=== PATIENT | male | born 1960 | race Hispanic/Latino ===

== ENCOUNTER 2018-10-14 11:50 | Emergency (ER) | payer MEDICAID ==
[~2018-10-14] VITALS: Ht 165.1 cm; Wt 70.3 kg
[~2018-10-14 11:50] MED LIST: GLIPIZIDE5 G1 MC; IBUPROFEN600 MG ORAL; METFORMIN HCL500 M1 ORAL; NORCO 5-325 TA1 EACH ORAL; PERMETHRIN60 GM TOPIC; PROTONIX40 MG ORAL; UNOBMED; ZOFRAN4 M1 ORAL
[2018-10-14 11:55] VITALS: BP 160/98
[2018-10-14] MEDS ORDERED: UNOBMED (11:55)
--- NOTE | 2018-10-14 11:55 | NUR ---
ED Nurse Note: BIB by ambulance, picked up from the street d/t ETOH. Patient awake, verbal, [place]ian speaking.
--- NOTE | 2018-10-14 12:02 | NUR ---
ED Nurse Note: Pt being seen by PA at bedside.
[2018-10-14 12:43] LABS: EOSINOPHILS % (AUTO) 3.3 % (0.0-3.0); HEMOGLOBIN 15.8 G/DL (14.2-18.0); LYMPHOCYTES % (AUTO) 29.9 % (20.0-45.0); MEAN CORPUSCULAR VOLUME 92 FL (80-99); MONOCYTES % (AUTO) 5.2 % (1.0-10.0); NEUTROPHILS % (AUTO) 60.7 % (45.0-75.0); PLATELET COUNT 202 K/UL (150-450); RED BLOOD COUNT 5.12 M/UL (4.70-6.10); RED CELL DISTRIBUTION WIDTH 11.6 % (11.6-14.8); WHITE BLOOD COUNT 6.7 K/UL (4.8-10.8)
[2018-10-14 12:44] LABS: ANION GAP 12 mmol/L (5-15); BLOOD UREA NITROGEN 6 mg/dL (7-18); CALCIUM 8.8 MG/DL (8.5-10.1); CARBON DIOXIDE 26 MMOL/L (21-32); CHLORIDE 101 MMOL/L (98-107); POTASSIUM 3.7 MMOL/L (3.5-5.1); SODIUM 139 MMOL/L (136-145)
--- NOTE | 2018-10-14 12:50 | NUR ---
ED Nurse Note: Pt picked up for CT in stable condition
[2018-10-14 13:01] LABS: ALANINE AMINOTRANSFERASE 31 U/L (12-78); ALBUMIN 3.9 G/DL (3.4-5.0); ALBUMIN/GLOBULIN RATIO 0.9 (1.0-2.7); ALKALINE PHOSPHATASE 55 U/L (46-116); ASPARTATE AMINO TRANSFERASE 37 U/L (15-37); BILIRUBIN,TOTAL 0.6 MG/DL (0.2-1.0); CREATINE KINASE 172 U/L (26-308)
[2018-10-14 13:13] LABS: APPEARANCE,URINE CLEAR; BILIRUBIN, URINE NEGATIVE (NEGATIVE); COLOR,URINE PALE YELLOW; GLUCOSE, URINE (UA) 2+ (NEGATIVE); KETONES,URINE NEGATIVE (NEGATIVE); LEUKOCYTE ESTERASE ,URINE NEGATIVE (NEGATIVE); NITRITE,URINE NEGATIVE (NEGATIVE); PH,URINE 6 (4.5-8.0); PROTEIN,URINE NEGATIVE (NEGATIVE); UROBILINOGEN,URINE NORMAL MG/DL (0.0-1.0)
--- NOTE | 2018-10-14 13:35 | Diagnostic Imaging Report ---
Indication: Headache. Head trauma Technique: Contiguous 5 mm thick transaxial imaging of the head obtained in a Siemens Sensation [address] scanner. Soft tissue and bone windows generated. Automatic Exposure Control was utilized. Total Dose length Product (DLP): 1389.[address] Dose Index Volume (CTDIvol): 70.38,70.38 mGy Comparison: none Findings: The size and configuration of the cortical sulci, basal cisterns, and ventricles are within normal limits for age. There is no mass effect, midline shift, or edema identified. There is no evidence of acute hemorrhage or abnormal intra-axial or extra-axial fluid collections. The bones and soft tissues are unremarkable. Impression: No mass effect, edema or acute bleed. The CT scanner at [facility] is accredited by the [employer] and the scans are performed using dose optimization techniques as appropriate to a performed exam including Automatic Exposure control.
--- NOTE | 2018-10-14 13:44 | Emergency Room Report ---
History of Present Illness General Chief Complaint: Alcohol Intoxication Source: Medical Record Present Illness HPI 57-year-old male with no symptom past medical history brought in by the paramedics after wandering the street due to alcohol intoxication. Patient reports that he had a lot to try and is disheveled and complains of headache after falling his head and hitting his head to the ground losing consciousness. Patient is not a good historian patient denies any past medical history symptoms denies any drug use. Patient appears obese disheveled and urinating in his bed. Allergies: Coded Allergies: No Known Allergies (Unverified , 02/22/14) Patient History Past Medical History: see triage record Past Surgical History: unable to obtain Pertinent Family History: none Social History: Reports: alcohol use Immunizations: UTD Reviewed Nursing Documentation: PMH: Agreed; PSxH: Agreed Nursing Documentation-PMH Hx Hypertension: Yes Hx Diabetes: Yes Hx Gastrointestinal Problems: Yes - GI BLEED Review of Systems All Other Systems: negative except mentioned in HPI Physical Exam Vital Signs Date Time Temp Pulse Resp B/P (MAP) Pulse Ox O2 Delivery O2 Flow Rate FiO2 10/14/18 11:46 98.1 100 20 160/98 (118) 96 Room Air Sp02 EP Interpretation: abnormal General Appearance: mild distress, other - Disheveled Head: normocephalic, atraumatic Eyes: bilateral eye normal inspection, bilateral eye PERRL ENT: normal ENT inspection, hearing grossly normal Neck: normal inspection, full range of motion, supple, thyroid normal Respiratory: normal inspection, chest non-tender, lungs clear, no wheezing Cardiovascular #1: normal inspection, regular rate, rhythm, no murmur Gastrointestinal: normal inspection, non tender, soft Rectal: deferred Genitourinary: no CVA tenderness Musculoskeletal: normal inspection, back normal Neurologic: oriented x3, responsive, iap displays analyst III-XII nml as tested Skin: no rash Lymphatic: normal inspection, no adenopathy Medical Decision Making PA Attestation All my diagnosis and treatment plans were reviewed ad discussed with my supervising physician Dr. Joseph Diagnostic Impression: Primary Impression: Acute alcoholic intoxication ER Course 57-year-old male with no symptom past medical history brought in by the paramedics after wandering the street due to alcohol intoxication. Patient reports that he had a lot to try and is disheveled and complains of headache after falling his head and hitting his head to the ground losing consciousness. Patient is not a good historian patient denies any past medical history symptoms denies any drug use. Patient appears obese disheveled and urinating in his bed. Ddx considered but are not limited to: generalized anxiety disorder, panic attack, depression with psycotic featurs, bipolar disorder, drug overdose Vital signs: are WNL, pt. is afebrile H&PE are most consistent with: Ddx considered but are not limited to: Alcohol intoxication with altered level of consciousness, alcohol intoxication causing pancreatitis, alcohol abuse, multi drug use and alcohol intoxication Vital signs: are WNL, pt. is afebrile H&PE are most consistent with: ORDERS: Blood work and head CT no contrast ER intervention: IV fluids and Zofran as well as Pepcid DISCHARGE: At this time pt. is stable for d/c to home. Will provide printed patient care instructions, and any necessary prescriptions. Care plan and follow up instructions have been discussed with the patient prior to discharge. At this time patient was sober and to be discharged with normal vital signs and normal labs. CT/MRI/US Diagnostic Results CT/MRI/US Diagnostic Results : Imaging Test Ordered: Head CT no contrast Impression No sign of hematoma Last Vital Signs Date Time Temp Pulse Resp B/P (MAP) Pulse Ox O2 Delivery O2 Flow Rate FiO2 10/14/18 11:55 98.1 100 20 160/98 96 Room Air Disposition: HOME, SELF-CARE Condition: Stable Referrals: NOT CHOSEN IPA/MD,REFERRING (PCP) Patient Instructions: Alcohol Use Disorder, Alcohol Intoxication, Alcohol Intoxication, [id number] Yovani Roberson Oct 14, 2018 13:44
[2018-10-14 16:17] VITALS: BP 142/72
== END 2018-10-14 16:10 | disposition home or self-care (01) ==
LOC: EDBD 11:50 → EMR 12:22
DX: F10.129 Alcohol abuse with intoxication, unspecified (principal); R51 Headache; I10 Essential (primary) hypertension; E11.9 Type 2 diabetes mellitus without complications
CPT/HCPCS: 36415; 70450; 80053; 80307; 81001; 82550; 85025; 96361; 96374; 96375; 99284; J2405; S0028

== ENCOUNTER 2018-10-28 10:23 | Inpatient (IN) | payer MEDICAID ==
[~2018-10-28] VITALS: Ht 157.5 cm; Wt 95.3 kg
[2018-10-28 10:23] VITALS: BP 136/82
--- NOTE | 2018-10-28 10:27 | Emergency Room Report ---
History of Present Illness General Chief Complaint: Lower Extremity Injury Source: Patient Present Illness HPI Patient presents with weakness and pain in his feet. The patient is a diabetic and has ulcers that are worsening with redness spreading up towards his body. He claims that he does not take medication for his diabetes. He does drink alcohol. He is has swelling in his feet. Is worse on the right side. Pain is rated 10/10, burning and aching. Occasionally vomiting. No blood. He occasionally has diarrhea but denies melena or hematochezia. Never seizures. Denies DTs. Has been admitted here for hyperosmolar coma. No sore throat, chest pain, palpitations, dysuria, abdominal pain, shortness of breath, joint pain, rashes, depression, anxiety, visual changes, headache. Patient was last admitted in 2014 with these discharge diagnoses: 1. Hyperosmolar coma, resolved. 2. Noncompliance. 3. History of diabetes, poorly controlled. 4. Dehydration, resolved. 5. Upper gastrointestinal bleeding. 6. History of alcohol abuse. 7. Anemia, status post four units PRBC. 8. Coagulopathy, status post two units of fresh frozen plasma. 9. Thrombocytopenia. 10. 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 11. Newly diagnosed pneumonia. 12. Gastritis, status post EGD. 13. Elevated transaminase. 14. Hypokalemia, resolved. Allergies: Coded Allergies: No Known Allergies (Unverified , 02/22/14) Patient History Past Medical History: see triage record Social History: Reports: alcohol use; Denies: drug use Social History Narrative Homeless - born in [facility] Reviewed Nursing Documentation: PMH: Agreed; PSxH: Agreed Nursing Documentation-PMH Hx Hypertension: Yes Hx Diabetes: Yes Hx Gastrointestinal Problems: Yes - GI BLEED Review of Systems All Other Systems: negative except mentioned in HPI Physical Exam Vital Signs Date Time Temp Pulse Resp B/P (MAP) Pulse Ox O2 Delivery O2 Flow Rate FiO2 10/28/18 10:15 99.1 80 16 136/82 (100) 96 Room Air General Appearance: GCS 15, non-toxic, mild distress, other - Disheveled Head: normocephalic, atraumatic Eyes: bilateral eye PERRL, bilateral eye EOMI, bilateral eye Scleral Injection ENT: moist mucus membranes - No lingual trauma Neck: full range of motion, supple Respiratory: chest non-tender, lungs clear, normal breath sounds Cardiovascular #1: regular rate, rhythm Cardiovascular #2: 2+ radial (L), 2+ dorsalis pedis (R), 2+ dorsalis pedis (L) Gastrointestinal: normal inspection, non tender, soft, no mass, non-distended Genitourinary: no CVA tenderness Musculoskeletal: back normal, no calf tenderness - left, calf tenderness - R no cords, swelling - Right foot Neurologic: alert, motor strength/tone normal, DTRs symmetric, sensory intact, other - Slight ataxia and slow to respond, oriented - X2 Psychiatric: depressed affect Skin: other - deep erythematous and necrotic ulcer R heel with foot swelling and erythema extending up calf Medical Decision Making Diagnostic Impression: Primary Impression: Diabetic foot ulcer Qualified Codes: E11.621 - Type 2 diabetes mellitus with foot ulcer; L97.402 - Non-pressure chronic ulcer of unspecified heel and midfoot with fat layer exposed Additional Impressions: Cellulitis Qualified Codes: L03.115 - Cellulitis of right lower limb Alcohol intoxication Qualified Codes: F10.929 - Alcohol use, unspecified with intoxication, unspecified Hyperglycemia Noncompliance with medication regimen ER Course Patient presents with bilateral heel lesions with history of diabetes and noncompliance and alcohol abuse. Differential includes diabetic foot ulcers, osteomyelitis, cellulitis, diabetic ketoacidosis, necrotizing fasciitis, risk of alcohol withdrawal or DTs amongst others. Although there is calf tenderness exam is against DVT. Evaluation with EKG, chest x-ray, foot x-rays and labs. Patient will be treated with IV hydration, analgesia, tetanus and based on findings possibly antibiotics. EKG no injury, chest x-ray no infiltrates, foot x-rays with vascular calcifications no gas or osteomyelitis. Labs with normal white count however elevated sed rate and C-reactive protein. CMP with elevated blood glucose without evidence of acidosis. But alcohol is elevated. Zosyn and vancomycin started. Bacitracin applied to lesions. Due to extensive lesion on the right heel with foot swelling and erythema the patient needs IV antibiotics. The patient is admitted to the hospital. Social service consult will be obtained. Laboratory Tests Test 10/28/18 11:05 White Blood Count 6.8 K/UL (4.8-10.8) Red Blood Count 4.56 M/UL (4.70-6.10) L Hemoglobin 14.3 G/DL (14.2-18.0) Hematocrit 42.6 % (42.0-52.0) Mean Corpuscular Volume 93 FL (80-99) Mean Corpuscular Hemoglobin 31.4 PG (27.0-31.0) H Mean Corpuscular Hemoglobin Concent 33.6 G/DL (32.0-36.0) Red Cell Distribution Width 12.1 % (11.6-14.8) Platelet Count 180 K/UL (150-450) Mean Platelet Volume 8.1 FL (6.5-10.1) Neutrophils (%) (Auto) 56.7 % (45.0-75.0) Lymphocytes (%) (Auto) 26.8 % (20.0-45.0) Monocytes (%) (Auto) 12.9 % (1.0-10.0) H Eosinophils (%) (Auto) 2.4 % (0.0-3.0) Basophils (%) (Auto) 1.2 % (0.0-2.0) Erythrocyte Sedimentation Rate 77 MM/HR (0-20) H Prothrombin Time 10.7 SEC (9.30-11.50) Prothrombin Time INR 1.0 (0.9-1.1) PTT 28 SEC (23-33) Urine Color Pale yellow Urine Appearance Clear Urine pH 6.5 (4.5-8.0) Urine Specific [place] 1.005 (1.005-1.035) Urine Protein Negative (NEGATIVE) Urine Glucose (UA) 2+ (NEGATIVE) H Urine Ketones Negative (NEGATIVE) Urine Blood Negative (NEGATIVE) Urine Nitrite Negative (NEGATIVE) Urine Bilirubin Negative (NEGATIVE) Urine Urobilinogen Normal MG/DL (0.0-1.0) Urine Leukocyte Esterase Negative (NEGATIVE) Sodium Level 135 MMOL/L (136-145) L Potassium Level 3.9 MMOL/L (3.5-5.1) Chloride Level 100 MMOL/L (98-107) Carbon Dioxide Level 25 MMOL/L (21-32) Anion Gap 10 mmol/L (5-15) Blood Urea Nitrogen 5 mg/dL (7-18) L Creatinine 0.8 MG/DL (0.55-1.30) Estimate Glomerular Filtration Rate > 60 mL/min (>60) Glucose Level 246 MG/DL (74-106) H Lactic Acid Level 1.90 mmol/L (0.4-2.0) Calcium Level 8.5 MG/DL (8.5-10.1) Magnesium Level 2.3 MG/DL (1.8-2.4) Total Bilirubin 0.5 MG/DL (0.2-1.0) Aspartate Amino Transferase (AST) 94 U/L (15-37) H Alanine Aminotransferase (ALT) 73 U/L (12-78) Alkaline Phosphatase 55 U/L (46-116) Total Creatine Kinase 189 U/L (26-308) Troponin I 0.000 ng/mL (0.000-0.056) C-Reactive Protein, Quantitative 4.1 mg/dL (0.00-0.90) H Pro-B-Type Natriuretic Peptide 35 pg/mL (0-125) Total Protein 8.7 G/DL (6.4-8.2) H Albumin 3.6 G/DL (3.4-5.0) Globulin 5.1 g/dL Albumin/Globulin Ratio 0.7 (1.0-2.7) L Lipase 219 U/L (73-393) Salicylates Level 1.2 ug/mL (2.8-20) L Urine Opiates Screen Negative (NEGATIVE) Acetaminophen Level < 2 MCG/ML (10-30) L Urine Barbiturates Screen Negative (NEGATIVE) Phencyclidine (PCP) Screen Negative (NEGATIVE) Urine Amphetamines Screen Negative (NEGATIVE) Urine Benzodiazepines Screen Negative (NEGATIVE) Urine Cocaine Screen Negative (NEGATIVE) Urine Marijuana (THC) Screen Negative (NEGATIVE) Serum Alcohol 332 mg/dL EKG Diagnostic Results Rate: normal Rhythm: NSR ST Segments: no acute changes Rhythm Strip Diag. Results EP Interpretation: yes Rhythm: NSR, no PVC's, no ectopy Chest X-Ray Diagnostic Results Chest X-Ray Diagnostic Results : Chest X-Ray Ordered: Yes # of Views/Limited/Complete: 1 View Indication: Other EP Interpretation: Yes Interpretation: no consolidation, no effusion, no pneumothorax Impression: No acute disease Electronically Signed by: Electronically signed by Vega Lr MD Other X-Ray Diagnostic Results Other X-Ray Diagnostic Results #1: X-Ray ordered: Left foot # of Views/Limited Vs Complete: 3 View Indication: Other EP Interpretation: Yes Interpretation: no dislocation, no fractures, other - Ocular calcification Electronically Signed by: Electronically signed by Vega Lr MD Other X-Ray Diagnostic Results #2: X-Ray ordered: Right foot # of Views/Limited Vs Complete: 3 View Indication: Other EP Interpretation: Yes Interpretation: no dislocation, no fractures, other - Vascular calcification Impression: Other Electronically Signed by: Electronically signed by Vega Lr MD Last Vital Signs Date Time Temp Pulse Resp B/P (MAP) Pulse Ox O2 Delivery O2 Flow Rate FiO2 10/28/18 21:00 Room Air 10/28/18 20:00 99.3 90 16 144/82 (102) 93 Status: improved Disposition: ADMITTED INPATIENT Condition: Serious Vega Lr MD Oct 28, 2018 10:27
[2018-10-28] MEDS ORDERED: Tetanus/Diptheria/Pertussis IM ONE (10:30)
[2018-10-28] MEDS ORDERED: Morphine Sulfate 2mg/ml Inj(IV/IM USE ONLY) IVP ONE (10:30)
[2018-10-28 11:24] LABS: BASOPHILS % (AUTO) 1.2 % (0.0-2.0); EOSINOPHILS % (AUTO) 2.4 % (0.0-3.0); HEMATOCRIT 42.6 % (42.0-52.0); HEMOGLOBIN 14.3 G/DL (14.2-18.0); LYMPHOCYTES % (AUTO) 26.8 % (20.0-45.0); MEAN CORPUSCULAR VOLUME 93 FL (80-99); MONOCYTES % (AUTO) 12.9 % (1.0-10.0); NEUTROPHILS % (AUTO) 56.7 % (45.0-75.0); PLATELET COUNT 180 K/UL (150-450); RED BLOOD COUNT 4.56 M/UL (4.70-6.10); RED CELL DISTRIBUTION WIDTH 12.1 % (11.6-14.8); WHITE BLOOD COUNT 6.8 K/UL (4.8-10.8)
[2018-10-28 11:25] LABS: APPEARANCE,URINE CLEAR; BILIRUBIN, URINE NEGATIVE (NEGATIVE); COLOR,URINE PALE YELLOW; GLUCOSE, URINE (UA) 2+ (NEGATIVE); KETONES,URINE NEGATIVE (NEGATIVE); LEUKOCYTE ESTERASE ,URINE NEGATIVE (NEGATIVE); NITRITE,URINE NEGATIVE (NEGATIVE); PH,URINE 6.5 (4.5-8.0); PROTEIN,URINE NEGATIVE (NEGATIVE); UROBILINOGEN,URINE NORMAL MG/DL (0.0-1.0)
[2018-10-28 11:33] LABS: ANION GAP 10 mmol/L (5-15); BLOOD UREA NITROGEN 5 mg/dL (7-18); CALCIUM 8.5 MG/DL (8.5-10.1); CARBON DIOXIDE 25 MMOL/L (21-32); CHLORIDE 100 MMOL/L (98-107); CREATININE 0.8 MG/DL (0.55-1.30); POTASSIUM 3.9 MMOL/L (3.5-5.1); SODIUM 135 MMOL/L (136-145)
--- NOTE | 2018-10-28 11:36 | NUR ---
ED Nurse Note: ann avelar done blood and urine sent
[2018-10-28 11:45] LABS: ALANINE AMINOTRANSFERASE 73 U/L (12-78); ALBUMIN 3.6 G/DL (3.4-5.0); ALBUMIN/GLOBULIN RATIO 0.7 (1.0-2.7); ALKALINE PHOSPHATASE 55 U/L (46-116); ASPARTATE AMINO TRANSFERASE 94 U/L (15-37); BILIRUBIN,TOTAL 0.5 MG/DL (0.2-1.0); CREATINE KINASE 189 U/L (26-308)
--- NOTE | 2018-10-28 11:59 | Diagnostic Imaging Report ---
Indication: Dyspnea Comparison: 05/28/2014 A single view chest radiograph was obtained. Findings: Cardiomediastinal appearance is within normal limits for age. The lungs are clear. Pulmonary vascularity is appropriate. The diaphragmatic contour is smooth and costophrenic angles are sharp. No pleural effusions are identified. The bones are unremarkable. Impression: No acute findings
--- NOTE | 2018-10-28 12:00 | Diagnostic Imaging Report ---
Indication: Foot pain Comparison: None Findings: 3 views of the left foot were obtained. No acute fractures, malalignment, erosions or periostitis are identified. Soft tissue swelling is present. Vascular calcifications are present.. Impression: No acute findings
--- NOTE | 2018-10-28 12:00 | Diagnostic Imaging Report ---
Indication: Foot Pain Comparison: None Findings: 3 views of the right foot were obtained. No acute fractures, malalignment, erosions or periostitis are identified. Soft tissue swelling is present. Extensive vascular calcifications are noted. Impression: No acute findings.
--- NOTE | 2018-10-28 12:00 | NUR ---
ED Nurse Note: Wound culture sent.
[2018-10-28] MEDS ORDERED: Piperacillin/Tazobactam 3.375 GM in NS 110 ML IVPB ONE (12:30)
[2018-10-28] MEDS ORDERED: Vancomycin 1.5 GM in NS 275 ML IVPB ONE (12:30)
[2018-10-28] MEDS ORDERED: Neosporin Oint Ud Pkt TOPIC ONE (12:30)
--- NOTE | 2018-10-28 14:01 | NUR ---
ED Nurse Note: pt states to ermd he only takes tylenol and no other meds . pt 's belongings list done swabs sent ifv infusing and abx well tolerated.
[2018-10-28 14:03] VITALS: BP 120/76
--- NOTE | 2018-10-28 15:20 | NUR ---
NURSE NOTES: Report received from JOHANNE Spears. Pt. sleeping comfortably. No discomfort noticed. R FA IV20g intact. flushed and SL. Multiple wounds on lower extremities cleaned with NS and covered with Optifoam. Wound care consult initiated. Pt. sleeping during assessment. Social service consult for placement. Bed on lowest position, side rails upx2, brakes engaged. Call light within easy reach.
--- NOTE | 2018-10-28 15:25 | NUR ---
NURSE NOTES: Report received from JOHANNE Spears. Patient sleeping comfortably. Easily awakened by voice however unable to stay awake. In RA. Denies any pain or SOB. AOx2 at this time. Belongings checked by CN, singed and filed. R FA20g IV patent, flushed, SL. VS stable. Multiple wounds in BLE cleaned with NS, picture taken and covered with Optifoam. Initial wound assessment done. Notified wound care nurse. Pt. to be evaluated on 10/29. patient services technician consult initiated for homelessness. Bed on lowest position, side rails upx2, brakes engaged. Call light in easy access.
[2018-10-28 16:00] VITALS: BP 105/67
[2018-10-28] MEDS ORDERED: Morphine Sulfate 2mg/ml Inj(IV/IM USE ONLY) IVP PRN (16:15)
--- NOTE | 2018-10-28 18:39 | NUR ---
CASE MANAGEMENT: REVIEW 57Y/MALE BIBA FROM STREET CC: C/O RIGHT FOOT PAIN AND SWELLING SI: OSTEOMYELITIS . DIABETIC FOOT ULCER /RIGHT HEEL . ALCOHOL INTOXICATION T 99.1 HR 80 RR 16 BP 136/82 SAT 96% ROOM AIR MONO 12.9 ESR 77 NA 135 BUN 5 GLUCOSE 245 IS: NS IVF BOLUS X1 MORPHINE IV X1 ZOFRAN IV X1 Tdap IM X1 VANCO IV X1 ZOSYN IV X1 PATIENT ADMITTED TO MED/SURG UNIT 10/28/2018 DCP: PATIENT REPORTS BEING HOMELESS
--- NOTE | 2018-10-28 19:17 | Infectious Diseases Prog Note ---
Assessment/Plan Problems: (1) Diabetic foot ulcer Assessment & Plan: with cellulitis , will order bone scan to rule out underlying osteomyelitis, continue local wound care and dressings change as per underwear finisher (2) Cellulitis Assessment & Plan: due to the above, continue antibiotics, keep legs elevated (3) Hyperglycemia Assessment & Plan: with poorly controlled DM, recommend tight glycemic control to keep blood glucose between 100-140 (4) Peripheral neuropathy Assessment & Plan: due to DM poorly controlled Subjective Allergies: Coded Allergies: No Known Allergies (Unverified , 02/22/14) Objective Vital Signs Last 24 Hour Vital Signs Date Time Temp Pulse Resp B/P (MAP) Pulse Ox O2 Delivery O2 Flow Rate FiO2 10/28/18 16:00 98.4 86 18 105/67 (80) 93 10/28/18 15:53 Room Air 10/28/18 14:56 Room Air 10/28/18 14:27 99.1 99 16 120/76 95 Room Air 10/28/18 14:03 99 16 120/76 95 Room Air 10/28/18 13:26 99.1 10/28/18 10:23 99.1 16 136/82 96 Room Air 10/28/18 10:15 99.1 80 16 136/82 (100) 96 Room Air Height (Feet): 5 Height (Inches): 2.00 Weight (Pounds): 210 Laboratory Tests Test 10/28/18 11:05 White Blood Count 6.8 K/UL (4.8-10.8) Red Blood Count 4.56 M/UL (4.70-6.10) L Hemoglobin 14.3 G/DL (14.2-18.0) Hematocrit 42.6 % (42.0-52.0) Mean Corpuscular Volume 93 FL (80-99) Mean Corpuscular Hemoglobin 31.4 PG (27.0-31.0) H Mean Corpuscular Hemoglobin Concent 33.6 G/DL (32.0-36.0) Red Cell Distribution Width 12.1 % (11.6-14.8) Platelet Count 180 K/UL (150-450) Mean Platelet Volume 8.1 FL (6.5-10.1) Neutrophils (%) (Auto) 56.7 % (45.0-75.0) Lymphocytes (%) (Auto) 26.8 % (20.0-45.0) Monocytes (%) (Auto) 12.9 % (1.0-10.0) H Eosinophils (%) (Auto) 2.4 % (0.0-3.0) Basophils (%) (Auto) 1.2 % (0.0-2.0) Erythrocyte Sedimentation Rate 77 MM/HR (0-20) H Prothrombin Time 10.7 SEC (9.30-11.50) Prothromb Time International Ratio 1.0 (0.9-1.1) Activated Partial Thromboplast Time 28 SEC (23-33) Urine Color Pale yellow Urine Appearance Clear Urine pH 6.5 (4.5-8.0) Urine Specific [place] 1.005 (1.005-1.035) Urine Protein Negative (NEGATIVE) Urine Glucose (UA) 2+ (NEGATIVE) H Urine Ketones Negative (NEGATIVE) Urine Blood Negative (NEGATIVE) Urine Nitrite Negative (NEGATIVE) Urine Bilirubin Negative (NEGATIVE) Urine Urobilinogen Normal MG/DL (0.0-1.0) Urine Leukocyte Esterase Negative (NEGATIVE) Sodium Level 135 MMOL/L (136-145) L Potassium Level 3.9 MMOL/L (3.5-5.1) Chloride Level 100 MMOL/L (98-107) Carbon Dioxide Level 25 MMOL/L (21-32) Anion Gap 10 mmol/L (5-15) Blood Urea Nitrogen 5 mg/dL (7-18) L Creatinine 0.8 MG/DL (0.55-1.30) Estimat Glomerular Filtration Rate > 60 mL/min (>60) Glucose Level 246 MG/DL (74-106) H Lactic Acid Level 1.90 mmol/L (0.4-2.0) Calcium Level 8.5 MG/DL (8.5-10.1) Magnesium Level 2.3 MG/DL (1.8-2.4) Total Bilirubin 0.5 MG/DL (0.2-1.0) Aspartate Amino Transf (AST/SGOT) 94 U/L (15-37) H Alanine Aminotransferase (ALT/SGPT) 73 U/L (12-78) Alkaline Phosphatase 55 U/L (46-116) Total Creatine Kinase 189 U/L (26-308) Troponin I 0.000 ng/mL (0.000-0.056) C-Reactive Protein, Quantitative 4.1 mg/dL (0.00-0.90) H Pro-B-Type Natriuretic Peptide 35 pg/mL (0-125) Total Protein 8.7 G/DL (6.4-8.2) H Albumin 3.6 G/DL (3.4-5.0) Globulin 5.1 g/dL Albumin/Globulin Ratio 0.7 (1.0-2.7) L Lipase 219 U/L (73-393) Salicylates Level 1.2 ug/mL (2.8-20) L Urine Opiates Screen Negative (NEGATIVE) Acetaminophen Level < 2 MCG/ML (10-30) L Urine Barbiturates Screen Negative (NEGATIVE) Phencyclidine (PCP) Screen Negative (NEGATIVE) Urine Amphetamines Screen Negative (NEGATIVE) Urine Benzodiazepines Screen Negative (NEGATIVE) Urine Cocaine Screen Negative (NEGATIVE) Urine Marijuana (THC) Screen Negative (NEGATIVE) Serum Alcohol 332 mg/dL Current Medications Medications (Trade) Dose Ordered Sig/[place] Route PRN Reason Start Time Stop Time Status Last Admin Dose Admin Acetaminophen/ Hydrocodone Bitart ([place]amel 5/325) 1 tab Q4H PRN ORAL Moderate Pain (Pain Scale 4-6) 10/28/18 16:15 11/04/18 16:14 Heparin Sodium (Porcine) (Heparin 5000 units/ml) 5,000 units EVERY 12 HOURS SUBQ 10/28/18 21:00 11/27/18 20:59 Morphine Sulfate (Morphine Sulfate) 2 mg Q4H PRN IVP Severe Pain (Pain Scale 7-10) 10/28/18 16:15 11/04/18 16:14 Pantoprazole (Protonix) 40 mg DAILY IVP 10/29/18 09:00 11/28/18 08:59 Piperacillin Sod/ Tazobactam Sod 3.375 gm/Sodium Chloride 110 ml @ 27.5 mls/hr EVERY 8 HOURS IVPB 10/28/18 22:00 11/02/18 21:59 Sodium Chloride 1,000 ml @ 300 mls/hr Q3H20M IV 10/28/18 10:30 11/27/18 10:29 10/28/18 18:09 Vancomycin HCl (Vanco rx to dose) 1 ea DAILY PRN MISC Per rx protocol 10/28/18 16:15 11/27/18 16:14 Vancomycin HCl 1 gm/Dextrose 275 ml @ 183.708 mls/hr Q12HR@1100,2300 IVPB 10/28/18 23:00 11/02/18 22:59 Jakob Odell M.D. Oct 28, 2018 19:17
--- NOTE | 2018-10-28 19:30 | NUR ---
NURSE NOTES: Patient asleep in bed, no complaint of pain, not in acute respiratory distress. Instructed the use of call light. Bed in lowest position, lock engaged and alarm on. Will continue to monitor.
--- NOTE | 2018-10-28 19:55 | NUR ---
HAND-OFF: Report given to JACOB Loja. Pt in stable condition.
[2018-10-28 20:00] VITALS: BP 144/82
[2018-10-28] MEDS: Piperacillin/Tazobactam 3.375 GM in NS 110 ML IVPB SCH (21:37)
[2018-10-28] MEDS: Heparin 5000 units/ml inj SUBQ SCH (21:40)
--- NOTE | 2018-10-28 23:02 | NUR ---
NURSE NOTES: Clarified to Dr. Solorzano about pt's IVF of 300ml/hr. Obtained new order and carried out.
[2018-10-28] MEDS: Vancomycin 1gm/D5W 275ml IVPB SCH ×2 (23:43)
[2018-10-29] VITALS: BP 165/63
--- NOTE | 2018-10-29 01:59 | NUR ---
NURSE NOTES: Dr. Solorzano was notified for increased BP. Obtained order for Lasix.
[2018-10-29 04:00] VITALS: BP 179/106
[2018-10-29] MEDS: HYDROcodone/Acetamin 5/325 tab ORAL PRN ×2 (04:47→21:32)
[2018-10-29] MEDS: Piperacillin/Tazobactam 3.375 GM in NS 110 ML IVPB SCH ×3 (04:53→21:33)
[2018-10-29 07:14] LABS: ALANINE AMINOTRANSFERASE 61 U/L (12-78); ALBUMIN 3.4 G/DL (3.4-5.0); ALBUMIN/GLOBULIN RATIO 0.7 (1.0-2.7); ALKALINE PHOSPHATASE 57 U/L (46-116); ANION GAP 11 mmol/L (5-15); ASPARTATE AMINO TRANSFERASE 66 U/L (15-37); BILIRUBIN,TOTAL 0.8 MG/DL (0.2-1.0); BLOOD UREA NITROGEN 6 mg/dL (7-18); CALCIUM 8.6 MG/DL (8.5-10.1); CARBON DIOXIDE 27 MMOL/L (21-32); CHLORIDE 99 MMOL/L (98-107); CHOLESTEROL 167 MG/DL (< 200); HDL CHOLESTEROL 76 MG/DL (40-60); POTASSIUM 3.6 MMOL/L (3.5-5.1); SODIUM 136 MMOL/L (136-145); TRIGLYCERIDES 100 MG/DL (30-150)
--- NOTE | 2018-10-29 07:15 | NUR ---
NURSE NOTES: Patient received in stable condition, observed ambulating from the bathroom with assistance of EXPORT ADMINISTRATOR. Reports mild pain on right foot only. Denies SOB. Breathing unlabored on room air. Dressings intact. IV sites on left wrist patent and intact. Bed locked in lowest position. Urinal by the bedside. Call light placed within reach. Will continue to monitor.
[2018-10-29 07:16] LABS: BASOPHILS % (AUTO) 1.9 % (0.0-2.0); EOSINOPHILS % (AUTO) 1.2 % (0.0-3.0); HEMATOCRIT 40.8 % (42.0-52.0); HEMOGLOBIN 13.8 G/DL (14.2-18.0); LYMPHOCYTES % (AUTO) 16.4 % (20.0-45.0); MEAN CORPUSCULAR VOLUME 93 FL (80-99); MONOCYTES % (AUTO) 14.5 % (1.0-10.0); PLATELET COUNT 188 K/UL (150-450); RED BLOOD COUNT 4.37 M/UL (4.70-6.10); RED CELL DISTRIBUTION WIDTH 12.3 % (11.6-14.8); WHITE BLOOD COUNT 6.9 K/UL (4.8-10.8)
--- NOTE | 2018-10-29 07:21 | NUR ---
HAND-OFF: Report given to JACOB Aguilera.
[2018-10-29 08:00] VITALS: BP 163/102
[2018-10-29] MEDS: Pantoprazole Inj IVP SCH (08:14)
[2018-10-29] MEDS: Metoprolol 25mg tab ORAL SCH ×2 (08:15→21:33)
[2018-10-29] MEDS: Heparin 5000 units/ml inj SUBQ SCH ×2 (08:29→21:41)
--- NOTE | 2018-10-29 09:30 | NUR ---
NURSE NOTES:WOUND CARE NOTES:Pt presented on admission with multiple ulcerations both lower extremities and feet. Full thickness ulcer with 90% biofilm,erythematous borders noted to posterior R tibia (L)1.5cm x (W)0.8cm.No odor or exudate noted. No elevation in skin temp or induration noted periwound. Dry eschar plantar R foot (L)1.5cm x (W)1cm.Periwound without erythema or fluctuance. Full thickness ulcer R heel. Base of wound has 90% mixed slough necrosis ,10% maría elena. Wound is fluctuant along borders. (L)5.5cm x (W)7cm.Small amt of brown exudate with mild odor noted. Two full thickness ulcer noted to L tibia that are in close proximity. Full thickness ulcer lateral L tibia. Base of wound with 100% slough with erythematous borders. (L)1.6cm x (W) 1.2cm. No odor or exudate noted. Full thickness ulcer lateral/posterior L tibia .Base of wound has 100% slough with erythematous borders. No odor or exudate noted.(L)1.4cm x (W)1.5cm. Dry eschar L achilles without erythema or fluctuance periwound.(L)3cm x (W)0.5cm..Blood filled blister note to L heel (L)3.8cm x (W)4.5cm. Periwound fluctuant but blanchable.. Necrotic areas noted to plantar L 1st, and 2nd metatarsals. Web space and plantar aspect of 3rd metatarsal is also necrotic. Pt stated he developed ulcers about 6 months ago but denied being seen by physician. 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 Education provided to pt on diabetic foot care and of risks vs benefits to wearing proper fitting foot wear . Instructed to wear shoes with wider width and good support . Pt also instructed to check feet daily and to maintain proper foot hygiene. Tx.Plan: Cleanse wounds R and L tibia with Saline. Apply Therahoney. Apply Cavilon Skin Barrier periwound. Cover wounds with Optifoam drsg. Change Daily and prn. Cleanse wound R heel with Saline. Apply Therahoney. Apply Cavilon Skin BArrier periwound.Cover with ABD pad. Wrap with Kerlix Daily and prn. Apply Betadine to necrotic areas R achilles,Necrotic toes and R heel . Cover with ABD pad. Change Daily and prn. Elevate legs with pillow.
--- NOTE | 2018-10-29 10:15 | NUR ---
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 SI: Osteomylitis VS: BP: 136/82 HR: 80 RR 16 02 Sat 96% (RA) T: 99.2 NT: RBC 4.56 Erythrocyte SED 77 UR Glucose 2+ BUN 5 Glucose Random 246 AST/SGOT 94 Total Protein 8.7 CRP Quantitative 4.1 Salicylate 1.2 Acetaminophen <2 Alcohol Serum 332mg/ml Xray Foot Complete R: Soft tissue swelling is present. Extensive vascular calcifications are noted. Xray Foot Complete L: Soft tissue swelling is present. Extensive vascular calcifications are noted. CXR: negative IS: Reglan 10mg IVP NS 1000ml IV Fentanyl 50mcg IV Zosyn 3.375GM IVPB Admitted to MedSurg MedSurg status DCP: Pending Hospital Stay
[2018-10-29] MEDS: Vancomycin 1gm/D5W 275ml IVPB SCH ×2 (10:19)
--- NOTE | 2018-10-29 10:34 | History & Physical ---
History and Physical History & Physicial seen and examined. Full Dictation completed on 1031 hours Kylie Solorzano MD Oct 29, 2018 10:34
--- NOTE | 2018-10-29 10:38 | NUR ---
Social Work This Sw received a consult due to homelessness. This SW met with patient who appears more alert/oriented x3. Patient explains he has been homeless (no longer has been staying with his friend, Shirley; noted last admission from [facility]). Patient explains he stays on [address] and [address] and continues to show substance abuse (alcohol) daily. Patient is an undocumented resident (for the past twenty years) and does not have any income. Patient denied that his friends are available to assist anymore financially. Pending progress; this Sw discussed with patient regarding abstaining from substance abuse (and risks involved). Patient does not have income or insurance for treatment, while AA meetings are recommended. Homeless shelters also recommended upon discharge, due to no income for placement elsewhere at this time. Pending progress and wound care needed at this time. Homeless coordinator here will also follow.
--- NOTE | 2018-10-29 10:45 | Consultation ---
DATE OF CONSULTATION: 10/28/2018 INFECTIOUS DISEASE CONSULTATION CONSULTING PHYSICIAN: Jakob Odell M.D. REFERRING PHYSICIAN: Kylie Solorzano M.D. REASON FOR CONSULTATION: Diabetic foot infection with ulcer and deep heel tissue injury in a poorly controlled diabetic patient. Recommendation for antibiotics treatment. HISTORY OF PRESENT ILLNESS: The patient is a 57-year-old male with poorly controlled diabetes and noncompliance with alcohol abuse history, presented to [facility] Emergency Room with weakness and pain in his feet. The patient is a known diabetic and noncompliant with his diabetic medicine. He has developed skin wounds on both heels, right worse than left over the last couple of weeks concerning for deep tissue injury and diabetic foot infection. He also had redness on both feet surrounding his deep tissue injury concerning for cellulitis. The patient has not been taking any antibiotics for it or seek any medical attention, so he was admitted through the emergency room for further evaluation and management. The patient was started on vancomycin and Zosyn empiric coverage and Infectious Disease consultation was requested for antibiotics treatment and further care. REVIEW OF SYSTEMS: A 14-point of system reviewed were all negative apart from the one I mentioned above. PAST MEDICAL HISTORY: Significant for hyperosmolar coma due to poorly controlled diabetes, dehydration, upper GI bleeding, alcohol abuse, anemia, coagulopathy, liver cirrhosis due to alcohol abuse, pneumonia, and noncompliance. PAST SURGICAL HISTORY: Not on record. SOCIAL HISTORY: Unclear whether he is homeless or not at this point. He was drinking in the past. Denied any recent alcohol activity. FAMILY HISTORY: Not contributory. ALLERGIES: No known drug allergies. MEDICATIONS: He is on vancomycin and Zosyn. For the rest of his medications, please refer to MAR. PHYSICAL EXAMINATION: VITAL SIGNS: Temperature 98.4, pulse 85, respirations 18, and blood pressure 105/67. Saturation 93% on room air. GENERAL: A middle-aged male, lying in bed, lethargic, awake, alert and responsive, not in distress. HEENT: Normocephalic and atraumatic. Pupils reactive to light. Moist oral mucosa. No exudate. NECK: Supple. No lymphadenopathy. CARDIOVASCULAR: Regular rate and rhythm. No murmur or gallop. LUNGS: Clear bilaterally. Diminished breathing sounds at the bases. No wheezing or rhonchi. ABDOMEN: Soft, nontender, and nondistended. Normal bowel sounds. No hepatosplenomegaly or ascites. EXTREMITIES: He had multiple wounds, mainly on the heels, worse on the right side than left. Left one has a hemorrhagic skin blister about to open up. Multiple wounds on his leg with redness and erythema on his feet with poor pulse in both legs. LABORATORY DATA: Showed white count of 6.8, hemoglobin 14.3, and platelet count 180,000. BUN of 5, creatinine 0.8. AST of 94, ALT 73. C-reactive protein 4.1. Urinalysis showed +3 glucose, but negative for infection. IMAGING: Right foot x-ray showed no acute findings. Left foot x-ray showed no acute findings. Chest x-ray showed no acute findings. ASSESSMENT AND RECOMMENDATION: 1. Diabetic foot ulcer. Continue current antibiotics coverage. Podiatry evaluation is pending. Recommend tight glycemic control. Local wound care as needed. We will do bone scan of both feet to rule out osteo. 2. Cellulitis of both legs. Already on wide spectrum antibiotics. Keep leg elevated all the time. Need vascular evaluation. 3. Deep tissue injury in both heels, worse on the right side, about to develop pressure wound. Keep offloading, local care, podiatry evaluation as needed and follow up. 4. Diabetes, poorly controlled. Recommend tight glycemic control to keep blood glucose between 100 to 140. Thank you for the consult. ID will continue to follow. Jakob Odell M.D. DR: EUGENIO JOB#: [id number] CC:
--- NOTE | 2018-10-29 11:24 | Infectious Diseases Prog Note ---
Assessment/Plan Problems: (1) Diabetic foot ulcer Assessment & Plan: with cellulitis , await bone scan to rule out underlying osteomyelitis, continue wide spectrum antibiotics and local wound care and dressings change as per intranet support (2) Cellulitis Assessment & Plan: due to the above, continue antibiotics, keep legs elevated (3) Hyperglycemia Assessment & Plan: with poorly controlled DM, recommend tight glycemic control to keep blood glucose between 100-140 (4) Peripheral neuropathy Assessment & Plan: due to DM poorly controlled Subjective Constitutional: Reports: no symptoms HEENT: Reports: no symptoms Respiratory: Reports: no symptoms Breasts: Reports: no symptoms Cardiovascular: Reports: no symptoms Gastrointestinal/Abdominal: Reports: no symptoms Genitourinary: Reports: no symptoms Neurologic: Reports: no symptoms Psychiatric: Reports: no symptoms Skin: Reports: ulcer Endocrine: Reports: no symptoms Hematologic: Reports: no symptoms Musculoskeletal: Reports: pain, swelling Allergies: Coded Allergies: No Known Allergies (Unverified , 02/22/14) Objective Vital Signs Last 24 Hour Vital Signs Date Time Temp Pulse Resp B/P (MAP) Pulse Ox O2 Delivery O2 Flow Rate FiO2 10/29/18 10:50 99.5 10/29/18 09:00 Room Air 10/29/18 08:15 92 179/106 10/29/18 08:00 100.5 93 20 163/102 (122) 97 10/29/18 04:00 98.9 92 16 179/106 (130) 96 10/29/18 00:00 99.4 94 16 165/63 (97) 97 10/28/18 21:00 Room Air 10/28/18 20:00 99.3 90 16 144/82 (102) 93 10/28/18 16:00 98.4 86 18 105/67 (80) 93 10/28/18 15:53 Room Air 10/28/18 14:56 Room Air 10/28/18 14:27 99.1 99 16 120/76 95 Room Air 10/28/18 14:03 99 16 120/76 95 Room Air 10/28/18 13:26 99.1 Height (Feet): 5 Height (Inches): 2.00 Weight (Pounds): 210 General Appearance: WD/WN, no acute distress HEENT: normocephalic, atraumatic, anicteric, mucous membranes moist, PERRL, EOMI, pharynx normal, supple Respiratory/Chest: chest wall non-tender, lungs clear, normal breath sounds, no respiratory distress, no accessory muscle use Cardiovascular: normal peripheral pulses, normal rate, regular rhythm, no gallop/murmur, no JVD Abdomen: normal bowel sounds, soft, non tender, no organomegaly, non distended , no mass, no scars Extremities: no cyanosis, no clubbing Skin: no rash, no lesions, no ulcers Neurologic/Psychiatric: alert, oriented x 3, responsive Lymphatic: no neck adenopathy, no groin adenopathy Musculoskeletal: normal muscle bulk, no effusion Microbiology Date/Time Source Procedure Growth Status 10/28/18 12:00 Foot Right Gram Stain - Final Resulted 10/28/18 12:00 Wound Culture - Preliminary Staphylococcus Aureus Resulted Laboratory Tests Test 10/29/18 06:18 White Blood Count 6.9 K/UL (4.8-10.8) Red Blood Count 4.37 M/UL (4.70-6.10) L Hemoglobin 13.8 G/DL (14.2-18.0) L Hematocrit 40.8 % (42.0-52.0) L Mean Corpuscular Volume 93 FL (80-99) Mean Corpuscular Hemoglobin 31.6 PG (27.0-31.0) H Mean Corpuscular Hemoglobin Concent 33.9 G/DL (32.0-36.0) Red Cell Distribution Width 12.3 % (11.6-14.8) Platelet Count 188 K/UL (150-450) Mean Platelet Volume 7.3 FL (6.5-10.1) Neutrophils (%) (Auto) 66.0 % (45.0-75.0) Lymphocytes (%) (Auto) 16.4 % (20.0-45.0) L Monocytes (%) (Auto) 14.5 % (1.0-10.0) H Eosinophils (%) (Auto) 1.2 % (0.0-3.0) Basophils (%) (Auto) 1.9 % (0.0-2.0) Sodium Level 136 MMOL/L (136-145) Potassium Level 3.6 MMOL/L (3.5-5.1) Chloride Level 99 MMOL/L (98-107) Carbon Dioxide Level 27 MMOL/L (21-32) Anion Gap 11 mmol/L (5-15) Blood Urea Nitrogen 6 mg/dL (7-18) L Creatinine 1.0 MG/DL (0.55-1.30) Estimat Glomerular Filtration Rate > 60 mL/min (>60) Glucose Level 192 MG/DL (74-106) H Hemoglobin A1c 7.0 % (4.3-6.0) H Calcium Level 8.6 MG/DL (8.5-10.1) Total Bilirubin 0.8 MG/DL (0.2-1.0) Aspartate Amino Transf (AST/SGOT) 66 U/L (15-37) H Alanine Aminotransferase (ALT/SGPT) 61 U/L (12-78) Alkaline Phosphatase 57 U/L (46-116) Total Protein 8.5 G/DL (6.4-8.2) H Albumin 3.4 G/DL (3.4-5.0) Globulin 5.1 g/dL Albumin/Globulin Ratio 0.7 (1.0-2.7) L Triglycerides Level 100 MG/DL (30-150) Cholesterol Level 167 MG/DL (< 200) LDL Cholesterol 75 mg/dL (<100) HDL Cholesterol 76 MG/DL (40-60) H Cholesterol/HDL Ratio 2.2 (3.3-4.4) L Current Medications Medications (Trade) Dose Ordered Sig/Ana Maria Route PRN Reason Start Time Stop Time Status Last Admin Dose Admin Acetaminophen (Tylenol) 650 mg Q6H PRN ORAL Mild Pain/Temp > 100.5 10/29/18 09:00 11/28/18 08:59 10/29/18 10:20 Acetaminophen/ Hydrocodone Bitart ([place] 5/325) 1 tab Q4H PRN ORAL Moderate Pain (Pain Scale 4-6) 10/28/18 16:15 11/04/18 16:14 10/29/18 04:47 Clonidine HCl (Catapres Tab) 0.1 mg Q4H PRN ORAL For High Blood Pressure 10/29/18 08:15 11/28/18 08:14 Furosemide (Lasix) 40 mg DAILY IV 10/29/18 05:00 11/28/18 04:59 10/29/18 04:41 Glimepiride (Amaryl) 2 mg ACBREAKFAST ORAL 10/30/18 06:30 9/15/19 06:29 Heparin Sodium (Porcine) (Heparin 5000 units/ml) 5,000 units EVERY 12 HOURS SUBQ 10/28/18 21:00 11/27/18 20:59 10/29/18 08:29 Metformin HCl (Glucophage) 500 mg TIAC ORAL 10/29/18 11:30 11/28/18 11:29 Metoprolol Tartrate (Lopressor) 25 mg Q12HR ORAL 10/29/18 09:00 11/28/18 08:59 10/29/18 08:15 Morphine Sulfate (Morphine Sulfate) 2 mg Q4H PRN IVP Severe Pain (Pain Scale 7-10) 10/28/18 16:15 11/04/18 16:14 Pantoprazole (Protonix) 40 mg DAILY IVP 10/29/18 09:00 11/28/18 08:59 10/29/18 08:14 Piperacillin Sod/ Tazobactam Sod 3.375 gm/Sodium Chloride 110 ml @ 27.5 mls/hr EVERY 8 HOURS IVPB 10/28/18 22:00 11/02/18 21:59 10/29/18 04:53 Vancomycin HCl (Vanco rx to dose) 1 ea DAILY PRN MISC Per rx protocol 10/28/18 16:15 11/27/18 16:14 Vancomycin HCl 1 gm/Dextrose 275 ml @ 183.708 mls/hr Q12HR@1100,2300 IVPB 10/28/18 23:00 11/02/18 22:59 10/29/18 10:19 Jakob Odell M.D. Oct 29, 2018 11:24
[2018-10-29 12:00] VITALS: BP 153/81
[2018-10-29] MEDS: metFORMIN 500mg tab ORAL SCH ×2 (12:21→16:09)
--- NOTE | 2018-10-29 14:39 | Consultation ---
Consult Note Assessment/Plan A/ 1) Wounds bilateral feet of unknown etiology - likely from being down for long period of time when intoxicated 2) Monckeberg's sclerorsis 3) DM 2 uncontrolled P/ 1) Cont wound care as ordered by wound nurse. No surgical intervention at this time. Patient requires extended wound care to resolved wounds 2) Abx per ID. Bone scan pending 3) Medical management of DM for optimal wound healing Thank you Jack Laughlin DPM Oct 29, 2018 14:39
--- NOTE | 2018-10-29 14:50 | Consultation ---
History of Present Illness General Date patient seen: Oct 29, 2018 Reason for Hospitalization: Lower Extremity Injury Present Illness HPI 57 year old male with history of DM, prior etoh, and below presented with weakness, worsening wounds of lower extremities and feeling unwell. surgery called to evaluate and assist with care. patient seen, chart reviewed, patient examined. Allergies: Coded Allergies: No Known Allergies (Unverified , 02/22/14) Medication History Scheduled PRN Ibuprofen* (Motrin*), 600 MG ORAL Q8H PRN for For Pain Miscellaneous Medications Unable to Obtain Medications (Unable To Obtain Meds), (Reported) Patient History Limited by: medical condition History Provided By: Patient, Medical Record, PMD Healthcare decision maker Resuscitation status Full Code Advanced Directive on File Past Medical/Surgical History Past Medical/Surgical History: (1) DKA, type 2 (2) DKA, type 2 (3) Hyperglycemia (4) Hemorrhagic shock (5) Hyperosmolar coma (6) Upper GI bleed (7) Hyperglycemia (8) Severe anemia (9) Thrombocytopenia (10) ETOH abuse (11) Coagulopathy (12) Hyponatremia (13) Hypokalemia (14) Tachycardia (15) Cramps of lower extremity (16) Cramps of lower extremity (17) Abdominal pain (18) Acute alcoholic intoxication (19) Peripheral neuropathy (20) Noncompliance with medication regimen (21) Alcohol intoxication (22) Hyperglycemia (23) Cellulitis (24) Diabetic foot ulcer Review of Systems Review of Symptoms General ROS: no weight loss or fever Psychological ROS: no depression or mood changes, no memory loss Ophthalmic ROS: no visual changes or eye irritation ENT ROS: no nasal congestion, hearing loss, dizziness Allergy and Immunology ROS: no allergic symptoms or urticaria Hematological and Lymphatic ROS: no swollen glands, unusual bleeding or bruising Endocrine ROS: no polyuria, polydipsia, weight changes, temperature intolerance Respiratory ROS: no cough, shortness of breath, or wheezing Cardiovascular ROS: no chest pain or dyspnea on exertion Gastrointestinal ROS: denies abdominal pain, no bright red blood in stool. Musculoskeletal ROS: no myalgias or arthralgias Neurological ROS: no TIA or stroke symptoms Dermatological ROS: no new or changing skin lesions, rashes or pruritis Physical Exam Physical Exam General appearance: alert, cooperative, no distress, appears stated age Head: Normocephalic, without obvious abnormality, atraumatic Eyes: conjunctivae/corneas clear. PERRL, EOM's intact. Fundi benign Throat: Lips, mucosa, and tongue normal. Teeth and gums normal Neck: supple, symmetrical, trachea midline, no adenopathy, thyroid: not enlarged, symmetric, no tenderness/mass/nodules, no carotid bruit and no JVD Lungs: clear to auscultation bilaterally Heart: regular rate and rhythm, S1, S2 normal, no murmur, click, rub or gallop Abdomen: soft, non-tender. Bowel sounds normal. No masses, no organomegaly Extremities: extremities normal, atraumatic, no cyanosis or edema Pulses: 2+ and symmetric Skin: Skin color, texture, turgor normal. No rashes or lesions Neurologic: Grossly normal Last 24 Hour Vital Signs Date Time Temp Pulse Resp B/P (MAP) Pulse Ox O2 Delivery O2 Flow Rate FiO2 10/29/18 12:00 99.5 91 18 153/81 (105) 100 10/29/18 10:50 99.5 10/29/18 09:00 Room Air 10/29/18 08:15 92 179/106 10/29/18 08:00 100.5 93 20 163/102 (122) 97 10/29/18 04:00 98.9 92 16 179/106 (130) 96 10/29/18 00:00 99.4 94 16 165/63 (97) 97 10/28/18 21:00 Room Air 10/28/18 20:00 99.3 90 16 144/82 (102) 93 10/28/18 16:00 98.4 86 18 105/67 (80) 93 10/28/18 15:53 Room Air 10/28/18 14:56 Room Air Intake and Output 10/28/18 10/29/18 19:00 07:00 Intake Total 1000 ml 1385.000 ml Output Total 800 ml 650 ml Balance 200 ml 735.000 ml IV Total 1000 ml 1385.000 ml Output Urine Total 800 ml 650 ml # Voids 3 1 # Bowel Movements 1 1 Laboratory Tests Test 10/29/18 06:18 White Blood Count 6.9 K/UL (4.8-10.8) Red Blood Count 4.37 M/UL (4.70-6.10) L Hemoglobin 13.8 G/DL (14.2-18.0) L Hematocrit 40.8 % (42.0-52.0) L Mean Corpuscular Volume 93 FL (80-99) Mean Corpuscular Hemoglobin 31.6 PG (27.0-31.0) H Mean Corpuscular Hemoglobin Concent 33.9 G/DL (32.0-36.0) Red Cell Distribution Width 12.3 % (11.6-14.8) Platelet Count 188 K/UL (150-450) Mean Platelet Volume 7.3 FL (6.5-10.1) Neutrophils (%) (Auto) 66.0 % (45.0-75.0) Lymphocytes (%) (Auto) 16.4 % (20.0-45.0) L Monocytes (%) (Auto) 14.5 % (1.0-10.0) H Eosinophils (%) (Auto) 1.2 % (0.0-3.0) Basophils (%) (Auto) 1.9 % (0.0-2.0) Sodium Level 136 MMOL/L (136-145) Potassium Level 3.6 MMOL/L (3.5-5.1) Chloride Level 99 MMOL/L (98-107) Carbon Dioxide Level 27 MMOL/L (21-32) Anion Gap 11 mmol/L (5-15) Blood Urea Nitrogen 6 mg/dL (7-18) L Creatinine 1.0 MG/DL (0.55-1.30) Estimat Glomerular Filtration Rate > 60 mL/min (>60) Glucose Level 192 MG/DL (74-106) H Hemoglobin A1c 7.0 % (4.3-6.0) H Calcium Level 8.6 MG/DL (8.5-10.1) Total Bilirubin 0.8 MG/DL (0.2-1.0) Aspartate Amino Transf (AST/SGOT) 66 U/L (15-37) H Alanine Aminotransferase (ALT/SGPT) 61 U/L (12-78) Alkaline Phosphatase 57 U/L (46-116) Total Protein 8.5 G/DL (6.4-8.2) H Albumin 3.4 G/DL (3.4-5.0) Globulin 5.1 g/dL Albumin/Globulin Ratio 0.7 (1.0-2.7) L Triglycerides Level 100 MG/DL (30-150) Cholesterol Level 167 MG/DL (< 200) LDL Cholesterol 75 mg/dL (<100) HDL Cholesterol 76 MG/DL (40-60) H Cholesterol/HDL Ratio 2.2 (3.3-4.4) L Height (Feet): 5 Height (Inches): 2.00 Weight (Pounds): 210 Medications Current Medications Medications (Trade) Dose Ordered Sig/Ana Maria Route PRN Reason Start Time Stop Time Status Last Admin Dose Admin Acetaminophen (Tylenol) 650 mg Q6H PRN ORAL Mild Pain/Temp > 100.5 10/29/18 09:00 11/28/18 08:59 10/29/18 10:20 Acetaminophen/ Hydrocodone Bitart ([place] 5/325) 1 tab Q4H PRN ORAL Moderate Pain (Pain Scale 4-6) 10/28/18 16:15 11/04/18 16:14 10/29/18 04:47 Clonidine HCl (Catapres Tab) 0.1 mg Q4H PRN ORAL For High Blood Pressure 10/29/18 08:15 11/28/18 08:14 Furosemide (Lasix) 40 mg DAILY IV 10/29/18 05:00 11/28/18 04:59 10/29/18 04:41 Glimepiride (Amaryl) 2 mg ACBREAKFAST ORAL 10/30/18 06:30 11/29/18 06:29 Heparin Sodium (Porcine) (Heparin 5000 units/ml) 5,000 units EVERY 12 HOURS SUBQ 10/28/18 21:00 11/27/18 20:59 10/29/18 08:29 Metformin HCl (Glucophage) 500 mg TIAC ORAL 10/29/18 11:30 11/28/18 11:29 10/29/18 12:21 Metoprolol Tartrate (Lopressor) 25 mg Q12HR ORAL 10/29/18 09:00 11/28/18 08:59 10/29/18 08:15 Morphine Sulfate (Morphine Sulfate) 2 mg Q4H PRN IVP Severe Pain (Pain Scale 7-10) 10/28/18 16:15 11/04/18 16:14 Pantoprazole (Protonix) 40 mg DAILY IVP 10/29/18 09:00 11/28/18 08:59 10/29/18 08:14 Piperacillin Sod/ Tazobactam Sod 3.375 gm/Sodium Chloride 110 ml @ 27.5 mls/hr EVERY 8 HOURS IVPB 10/28/18 22:00 11/02/18 21:59 10/29/18 13:16 Vancomycin HCl (Vanco rx to dose) 1 ea DAILY PRN MISC Per rx protocol 10/28/18 16:15 11/27/18 16:14 Vancomycin HCl 1 gm/Dextrose 275 ml @ 183.708 mls/hr Q12HR@1100,2300 IVPB 10/28/18 23:00 11/02/18 22:59 10/29/18 10:19 Assessment/Plan Problem List: (1) Cellulitis Assessment & Plan: 57M with bilateral lower extremity and foot wounds of unknown etiology. possible decubitus vs trauma foam dressing applied to bilateral heals and leg wound. okay to apply therahoney No surgical intervention at this time. appreciate podiatry input Abx per ID. Bone scan pending nutritional optimization turn q2 hours off load pressure with pillows heel protectors ICD Codes: L03.90 - Cellulitis, unspecified SNOMED: [id number], [id number] Qualifiers: Qualified Codes: L03.115 - Cellulitis of right lower limb Owen Bourgeois Oct 29, 2018 14:50
[2018-10-29 16:00] VITALS: BP 160/100
--- NOTE | 2018-10-29 19:30 | Consultation ---
DATE OF CONSULTATION: 10/29/2018 CONSULTING PHYSICIAN: Jack Laughlin D.P.M. REFERRING PHYSICIAN: Kylie Solorzano M.D. REASON FOR CONSULTATION: Infected foot wounds, diabetes mellitus. HISTORY OF PRESENT ILLNESS: The patient is a 57-year-old male who was admitted to [facility] on 10/28/2018 for infected wounds. The patient states that he is kind of unclear how the wounds began. He does admit to heavy drinking and intoxication, which led to him being unconscious for a period of time. PAST MEDICAL HISTORY: Significant for diabetes mellitus, poorly controlled. SOCIAL HISTORY: The patient is transient. FAMILY HISTORY: Noncontributory. ALLERGIES: No known drug allergies. MEDICATIONS: Per MAR. PHYSICAL EXAMINATION: VITAL SIGNS: Temperature is 99.5, pulse is 91, respiration rate is 18, blood pressure is 153/81, saturating 100% on room air. EXTREMITIES: Lower extremity physical exam, vascular, palpable pedal pulses noted bilaterally. Feet are equally warm. No edema or cyanosis noted. DERMATOLOGICAL: There is a full-thickness wound noted on the posterior aspect of the right heel. No signs of acute infection are noted. Wound base is dusky. Dry blisters noted on the left posterior heel as well as multiple lesions on the plantar left foot. There are 2 full-thickness ulcerations noted on the lateral aspect of bilateral legs. No bone or tendon is exposed in either one of these as well as no bone or tendon exposed in the right heel. NEUROLOGICAL: Protective threshold is diminished. MUSCULOSKELETAL: No gross deformities are noted. The patient ambulates. LABORATORY DATA: White blood cell count is 6.9, hemoglobin and hematocrit is 13.8 and 40.8, and platelet count is 188. Sedimentation rate is 77. Potassium is 3.6, BUN is 6, creatinine is 1.0, glucose is 192. Hemoglobin A1c 7.0. C-reactive protein is 4.1. Total protein is 8.5. Albumin is 3.4. INR is 1.0. Serum toxicology is positive for serum alcohol as well as low levels of acetaminophen and salicylate. Bilateral foot x-rays show no acute findings, but vascular calcifications are present. ASSESSMENT: 1. Wounds bilateral feet of unknown etiology, likely from being down for long periods of time when intoxicated. 2. Monckeberg sclerosis. 3. Type 2 diabetes mellitus, uncontrolled. PLAN: 1. Continue wound care as ordered by the wound nurse. No surgical intervention at this time. The patient requires extended wound care to resolve wounds. 2. Antibiotics per ID. Bone scan is pending. 3. Medical management of diabetes for optimal wound healing. Thank you for the courtesy of this consultation, Dr. Solorzano. Jack Laughlin D.P.M. DR: BREANA JOB#: [id number] CC:
--- NOTE | 2018-10-29 19:30 | NUR ---
NURSE NOTES: Patient awake in bed, alert and oriented x4. Complaint of moderate pain on feet. Will medicate as ordered. Instructed the use of call light. Call light and needs in reach. Bed in lowest position, lock engaged and alarm on. Will continue to monitor.
--- NOTE | 2018-10-29 19:30 | History and Physical Report ---
DATE OF ADMISSION: 10/28/2018 SOURCE OF INFORMATION: Patient and EMR. HISTORY OF PRESENT ILLNESS: The patient is a 57-year-old homeless male. The patient presented with worsening of his swelling and the wounds on the lower extremity. At the time of evaluation, the patient denies any chest pain or shortness of breath. No nausea. No vomiting. No diarrhea. No constipation. REVIEW OF SYSTEMS: All 12 elements of review of systems reviewed. Pertinent positive and negative as above. PAST MEDICAL HISTORY: Including anemia. Otherwise unknown. PAST SURGICAL HISTORY: Denies. ALLERGIES: NKDA. MEDICATIONS: Current hospital medications including morphine, metoprolol, [place], Lasix. SOCIAL HISTORY: The patient denies history of illicit drug abuse, smoking, or alcohol abuse. The patient reported that he is homeless. PHYSICAL EXAMINATION: VITAL SIGNS: Blood pressure is 130/80, temperature 98.2, pulse oximetry 98% on room air, respiratory rate 18. HEAD AND NECK: Atraumatic, normocephalic. CHEST: Clear to auscultation. HEART: S1, S2. Regular rate and rhythm. ABDOMEN: Soft. No organomegaly. MUSCULOSKELETAL: Positive for diffuse edema and the wounds on both lower extremities. NEUROLOGIC: The patient is awake, alert, oriented x3. ASSESSMENT: 1. Acute cellulitis of the lower extremities (less likely to be possibility of osteomyelitis cannot be excluded). 2. Anemia. 3. Homelessness. 4. Diabetes. 5. GI and DVT prophylaxis. PLAN OF CARE: I would start the patient on this sliding scale insulin and diabetic medication. ID and banquet pilot have been notified. Continue with the empiric antibiotic treatment. Kylie Solorzano M.D. DR: RUFUS JOB#: [id number] CC:
--- NOTE | 2018-10-29 19:34 | NUR ---
HAND-OFF: Report given to Maria A JAMES.
[2018-10-29 20:00] VITALS: BP 156/93
[2018-10-29] MEDS: Vancomycin 1gm in D5W 275ml IVPB SCH (22:32)
[2018-10-30] VITALS (7 sets, daily range): BP systolic 111–180; BP diastolic 63–110
[2018-10-30] MEDS: Piperacillin/Tazobactam 3.375 GM in NS 110 ML IVPB SCH ×3 (06:13→21:15)
[2018-10-30] MEDS: Vancomycin 1gm in D5W 275ml IVPB SCH ×2 (06:15→15:54)
[2018-10-30] MEDS: metFORMIN 500mg tab ORAL SCH ×3 (06:20→15:54)
[2018-10-30] MEDS: Glimepiride 1mg tab ORAL SCH (06:20)
[2018-10-30 06:24] LABS: BASOPHILS % (AUTO) 1.1 % (0.0-2.0); EOSINOPHILS % (AUTO) 2.9 % (0.0-3.0); HEMATOCRIT 39.7 % (42.0-52.0); HEMOGLOBIN 13.5 G/DL (14.2-18.0); LYMPHOCYTES % (AUTO) 23.8 % (20.0-45.0); MEAN CORPUSCULAR VOLUME 93 FL (80-99); MONOCYTES % (AUTO) 16.7 % (1.0-10.0); NEUTROPHILS % (AUTO) 55.5 % (45.0-75.0); PLATELET COUNT 193 K/UL (150-450); RED BLOOD COUNT 4.25 M/UL (4.70-6.10); RED CELL DISTRIBUTION WIDTH 12.4 % (11.6-14.8); WHITE BLOOD COUNT 5.6 K/UL (4.8-10.8)
[2018-10-30 07:10] LABS: ALANINE AMINOTRANSFERASE 45 U/L (12-78); ALBUMIN 3.1 G/DL (3.4-5.0); ALBUMIN/GLOBULIN RATIO 0.6 (1.0-2.7); ALKALINE PHOSPHATASE 47 U/L (46-116); ANION GAP 9 mmol/L (5-15); ASPARTATE AMINO TRANSFERASE 43 U/L (15-37); BILIRUBIN,TOTAL 1.1 MG/DL (0.2-1.0); BLOOD UREA NITROGEN 6 mg/dL (7-18); CALCIUM 8.5 MG/DL (8.5-10.1); CARBON DIOXIDE 28 MMOL/L (21-32); CHLORIDE 98 MMOL/L (98-107); CREATININE 0.9 MG/DL (0.55-1.30); POTASSIUM 3.7 MMOL/L (3.5-5.1); SODIUM 135 MMOL/L (136-145)
[2018-10-30 07:12] LABS: BILIRUBIN,DIRECT 0.3 MG/DL (0.0-0.3)
--- NOTE | 2018-10-30 07:18 | NUR ---
HAND-OFF: Report given to JACOB Anguiano. Addendum: 10/30/18 at 0718 by INGRID ROGERS RN HAND-OFF: Report given to JACOB Aguilera.
--- NOTE | 2018-10-30 08:01 | NUR ---
NURSE NOTES: Patient received in stable condition, breathing even and unlabored on room air. Alert and oriented x4, Frisian speaking. Denies pain at this time. Dressings on bilateral feet clean, dry and intact. Bed locked in lowest position, call light placed within reach. Will continue to monitor.
[2018-10-30] MEDS: Pantoprazole Inj IVP SCH (08:12)
[2018-10-30] MEDS: Heparin 5000 units/ml inj SUBQ SCH ×2 (08:12→21:16)
[2018-10-30] MEDS: Metoprolol 25mg tab ORAL SCH ×2 (08:12→21:14)
--- NOTE | 2018-10-30 10:40 | General Progress Note ---
Assessment/Plan Assessment/Plan: S: I am better O: seems comfortable, no severe pain PHYSICAL EXAMINATION:HEAD AND NECK: Atraumatic, normocephalic. CHEST: Clear to auscultation.HEART: S1, S2. Regular rate and rhythm. ABDOMEN: Soft. No organomegaly.MUSCULOSKELETAL: Positive for diffuse edema and the wounds on both lower extremities. NEUROLOGIC: The patient is awake, alert, oriented x3. ASSESSMENT: 1. Acute cellulitis of the lower extremities (less likely to be possibility of osteomyelitis cannot be excluded). 2. Anemia. 3. Homelessness. 4. Diabetes. 5. GI and DVT prophylaxis. PLAN OF CARE: current antibiotic Subjective Allergies: Coded Allergies: No Known Allergies (Unverified , 02/22/14) Objective Last 24 Hour Vital Signs Date Time Temp Pulse Resp B/P (MAP) Pulse Ox O2 Delivery O2 Flow Rate FiO2 10/30/18 08:12 80 179/109 10/30/18 08:00 98.8 89 17 111/63 (79) 96 10/30/18 06:38 179/109 10/30/18 06:37 179/109 (132) 10/30/18 04:00 97.6 80 20 180/110 (133) 96 10/30/18 00:31 179/104 10/30/18 00:00 99.2 83 18 179/104 (129) 97 10/29/18 21:33 84 156/93 10/29/18 21:00 Room Air 10/29/18 20:00 98.1 84 16 156/93 (114) 96 10/29/18 16:14 160/100 10/29/18 16:00 99.6 83 19 160/100 (120) 98 10/29/18 12:00 99.5 91 18 153/81 (105) 100 10/29/18 10:50 99.5 Intake and Output 10/29/18 10/30/18 18:59 06:59 Intake Total 720 ml 357.500 ml Output Total 800 ml Balance -80 ml 357.500 ml Intake Oral 720 ml IV Total 357.500 ml Output Urine Total 800 ml # Voids 2 3 # Bowel Movements 1 Laboratory Tests 10/29/18 21:37: Vancomycin Level Trough 9.3 10/30/18 05:15: White Blood Count 5.6, Red Blood Count 4.25L, Hemoglobin 13.5L, Hematocrit 39.7L , Mean Corpuscular Volume 93, Mean Corpuscular Hemoglobin 31.9H, Mean Corpuscular Hemoglobin Concent 34.1, Red Cell Distribution Width 12.4, Platelet Count 193, Mean Platelet Volume 6.9, Neutrophils (%) (Auto) 55.5, Lymphocytes (% ) (Auto) 23.8, Monocytes (%) (Auto) 16.7H, Eosinophils (%) (Auto) 2.9, Basophils (%) (Auto) 1.1, Sodium Level 135L, Potassium Level 3.7, Chloride Level 98, Carbon Dioxide Level 28, Anion Gap 9, Blood Urea Nitrogen 6L, Creatinine 0.9, Estimat Glomerular Filtration Rate > 60, Glucose Level 146H, Calcium Level 8.5, Total Bilirubin 1.1H, Direct Bilirubin 0.3, Aspartate Amino Transf (AST/SGOT) 43H, Alanine Aminotransferase (ALT/SGPT) 45, Alkaline Phosphatase 47, Total Protein 7.9, Albumin 3.1L, Globulin 4.8, Albumin/Globulin Ratio 0.6L Height (Feet): 5 Height (Inches): 2.00 Weight (Pounds): 210 Kylie Solorzano MD Oct 30, 2018 10:40
--- NOTE | 2018-10-30 13:37 | Surgery Progress Note ---
Surgery Progress Note Subjective Additional Comments no acute events comfortable keeping legs elevated dressings intact and dry / clean Objective Last 24 Hour Vital Signs Date Time Temp Pulse Resp B/P (MAP) Pulse Ox O2 Delivery O2 Flow Rate FiO2 10/30/18 12:00 98.6 69 18 127/78 (94) 97 10/30/18 09:00 Room Air 10/30/18 08:12 80 179/109 10/30/18 08:00 98.8 89 17 111/63 (79) 96 10/30/18 06:38 179/109 10/30/18 06:37 179/109 (132) 10/30/18 04:00 97.6 80 20 180/110 (133) 96 10/30/18 00:31 179/104 10/30/18 00:00 99.2 83 18 179/104 (129) 97 10/29/18 21:33 84 156/93 10/29/18 21:00 Room Air 10/29/18 20:00 98.1 84 16 156/93 (114) 96 10/29/18 16:14 160/100 10/29/18 16:00 99.6 83 19 160/100 (120) 98 I&O Intake and Output 10/29/18 10/30/18 19:00 07:00 Intake Total 720 ml 357.500 ml Output Total 800 ml Balance -80 ml 357.500 ml Intake Oral 720 ml IV Total 357.500 ml Output Urine Total 800 ml # Voids 2 3 # Bowel Movements 1 Dressing: dry Wound: clean Cardiovascular: RSR Respiratory: clear Abdomen: soft, flat, non-tender, present bowel sounds Extremities: cyanosis, other Laboratory Tests Test 10/29/18 21:37 10/30/18 05:15 Vancomycin Level Trough 9.3 ug/mL (5.0-12.0) White Blood Count 5.6 K/UL (4.8-10.8) Red Blood Count 4.25 M/UL (4.70-6.10) L Hemoglobin 13.5 G/DL (14.2-18.0) L Hematocrit 39.7 % (42.0-52.0) L Mean Corpuscular Volume 93 FL (80-99) Mean Corpuscular Hemoglobin 31.9 PG (27.0-31.0) H Mean Corpuscular Hemoglobin Concent 34.1 G/DL (32.0-36.0) Red Cell Distribution Width 12.4 % (11.6-14.8) Platelet Count 193 K/UL (150-450) Mean Platelet Volume 6.9 FL (6.5-10.1) Neutrophils (%) (Auto) 55.5 % (45.0-75.0) Lymphocytes (%) (Auto) 23.8 % (20.0-45.0) Monocytes (%) (Auto) 16.7 % (1.0-10.0) H Eosinophils (%) (Auto) 2.9 % (0.0-3.0) Basophils (%) (Auto) 1.1 % (0.0-2.0) Sodium Level 135 MMOL/L (136-145) L Potassium Level 3.7 MMOL/L (3.5-5.1) Chloride Level 98 MMOL/L (98-107) Carbon Dioxide Level 28 MMOL/L (21-32) Anion Gap 9 mmol/L (5-15) Blood Urea Nitrogen 6 mg/dL (7-18) L Creatinine 0.9 MG/DL (0.55-1.30) Estimat Glomerular Filtration Rate > 60 mL/min (>60) Glucose Level 146 MG/DL (74-106) H Calcium Level 8.5 MG/DL (8.5-10.1) Total Bilirubin 1.1 MG/DL (0.2-1.0) H Direct Bilirubin 0.3 MG/DL (0.0-0.3) Aspartate Amino Transf (AST/SGOT) 43 U/L (15-37) H Alanine Aminotransferase (ALT/SGPT) 45 U/L (12-78) Alkaline Phosphatase 47 U/L (46-116) Total Protein 7.9 G/DL (6.4-8.2) Albumin 3.1 G/DL (3.4-5.0) L Globulin 4.8 g/dL Albumin/Globulin Ratio 0.6 (1.0-2.7) L Plan Problems: (1) Cellulitis Assessment & Plan: 57M with bilateral lower extremity and foot wounds of unknown etiology. possible decubitus vs trauma foam dressing applied to bilateral heals and leg wound. okay to apply therahoney No surgical intervention at this time. appreciate podiatry input Abx per ID. Bone scan pending nutritional optimization turn q2 hours off load pressure with pillows heel protectors Owen Bourgeois Oct 30, 2018 13:37
--- NOTE | 2018-10-30 14:10 | Infectious Diseases Prog Note ---
Assessment/Plan Problems: (1) Diabetic foot ulcer Assessment & Plan: with cellulitis , await bone scan to rule out underlying osteomyelitis, continue wide spectrum antibiotics and local wound care and dressings change as per staple side laster (2) Cellulitis Assessment & Plan: due to the above, continue antibiotics, keep legs elevated (3) Hyperglycemia Assessment & Plan: with poorly controlled DM, recommend tight glycemic control to keep blood glucose between 100-140 (4) Peripheral neuropathy Assessment & Plan: due to DM poorly controlled Subjective Constitutional: Reports: no symptoms HEENT: Reports: no symptoms Respiratory: Reports: no symptoms Breasts: Reports: no symptoms Cardiovascular: Reports: no symptoms Gastrointestinal/Abdominal: Reports: no symptoms Genitourinary: Reports: no symptoms Neurologic: Reports: no symptoms Psychiatric: Reports: no symptoms Skin: Reports: no symptoms Endocrine: Reports: no symptoms Hematologic: Reports: no symptoms Musculoskeletal: Reports: pain, swelling Allergies: Coded Allergies: No Known Allergies (Unverified , 02/22/14) Objective Vital Signs Last 24 Hour Vital Signs Date Time Temp Pulse Resp B/P (MAP) Pulse Ox O2 Delivery O2 Flow Rate FiO2 10/30/18 12:00 98.6 69 18 127/78 (94) 97 10/30/18 09:00 Room Air 10/30/18 08:12 80 179/109 10/30/18 08:00 98.8 89 17 111/63 (79) 96 10/30/18 06:38 179/109 10/30/18 06:37 179/109 (132) 10/30/18 04:00 97.6 80 20 180/110 (133) 96 10/30/18 00:31 179/104 10/30/18 00:00 99.2 83 18 179/104 (129) 97 10/29/18 21:33 84 156/93 10/29/18 21:00 Room Air 10/29/18 20:00 98.1 84 16 156/93 (114) 96 10/29/18 16:14 160/100 10/29/18 16:00 99.6 83 19 160/100 (120) 98 Height (Feet): 5 Height (Inches): 2.00 Weight (Pounds): 210 General Appearance: WD/WN, no acute distress HEENT: normocephalic, atraumatic, anicteric, mucous membranes moist, PERRL Respiratory/Chest: chest wall non-tender, lungs clear, normal breath sounds, no respiratory distress, no accessory muscle use Cardiovascular: normal peripheral pulses, normal rate, regular rhythm, no gallop/murmur, no JVD Abdomen: normal bowel sounds, soft, non tender, no organomegaly, non distended , no mass, no scars Extremities: no cyanosis, no clubbing Skin: no rash, no lesions, no ulcers Neurologic/Psychiatric: alert, responsive Lymphatic: no neck adenopathy, no groin adenopathy Musculoskeletal: normal muscle bulk, no effusion Microbiology Date/Time Source Procedure Growth Status 10/28/18 11:10 Blood Blood Culture - Preliminary NO GROWTH AFTER 24 HOURS Resulted 10/28/18 11:05 Blood Blood Culture - Preliminary NO GROWTH AFTER 24 HOURS Resulted 10/28/18 12:38 Nasal Nares MRSA Culture - Final NO METHICILLIN RESISTANT STAPH AUREUS... Complete 10/28/18 12:38 Rectum - Final NO CARBAPENEM-RESISTANT ENTEROBACTERI... Complete 10/28/18 12:38 Rectum VRE Culture - Final NO VANCOMYCIN RESISTANT ENTEROCOCCUS ... Complete 10/28/18 12:00 Foot Right Gram Stain - Final Complete 10/28/18 12:00 Wound Culture - Final Staphylococcus Aureus Complete Laboratory Tests Test 10/29/18 21:37 10/30/18 05:15 Vancomycin Level Trough 9.3 ug/mL (5.0-12.0) White Blood Count 5.6 K/UL (4.8-10.8) Red Blood Count 4.25 M/UL (4.70-6.10) L Hemoglobin 13.5 G/DL (14.2-18.0) L Hematocrit 39.7 % (42.0-52.0) L Mean Corpuscular Volume 93 FL (80-99) Mean Corpuscular Hemoglobin 31.9 PG (27.0-31.0) H Mean Corpuscular Hemoglobin Concent 34.1 G/DL (32.0-36.0) Red Cell Distribution Width 12.4 % (11.6-14.8) Platelet Count 193 K/UL (150-450) Mean Platelet Volume 6.9 FL (6.5-10.1) Neutrophils (%) (Auto) 55.5 % (45.0-75.0) Lymphocytes (%) (Auto) 23.8 % (20.0-45.0) Monocytes (%) (Auto) 16.7 % (1.0-10.0) H Eosinophils (%) (Auto) 2.9 % (0.0-3.0) Basophils (%) (Auto) 1.1 % (0.0-2.0) Sodium Level 135 MMOL/L (136-145) L Potassium Level 3.7 MMOL/L (3.5-5.1) Chloride Level 98 MMOL/L (98-107) Carbon Dioxide Level 28 MMOL/L (21-32) Anion Gap 9 mmol/L (5-15) Blood Urea Nitrogen 6 mg/dL (7-18) L Creatinine 0.9 MG/DL (0.55-1.30) Estimat Glomerular Filtration Rate > 60 mL/min (>60) Glucose Level 146 MG/DL (74-106) H Calcium Level 8.5 MG/DL (8.5-10.1) Total Bilirubin 1.1 MG/DL (0.2-1.0) H Direct Bilirubin 0.3 MG/DL (0.0-0.3) Aspartate Amino Transf (AST/SGOT) 43 U/L (15-37) H Alanine Aminotransferase (ALT/SGPT) 45 U/L (12-78) Alkaline Phosphatase 47 U/L (46-116) Total Protein 7.9 G/DL (6.4-8.2) Albumin 3.1 G/DL (3.4-5.0) L Globulin 4.8 g/dL Albumin/Globulin Ratio 0.6 (1.0-2.7) L Current Medications Medications (Trade) Dose Ordered Sig/Ana Maria Route PRN Reason Start Time Stop Time Status Last Admin Dose Admin Acetaminophen (Tylenol) 650 mg Q6H PRN ORAL Mild Pain/Temp > 100.5 10/29/18 09:00 11/28/18 08:59 10/29/18 10:20 Acetaminophen/ Hydrocodone Bitart ([place] 5/325) 1 tab Q4H PRN ORAL Moderate Pain (Pain Scale 4-6) 10/28/18 16:15 11/04/18 16:14 10/29/18 21:32 Clonidine HCl (Catapres Tab) 0.1 mg Q4H PRN ORAL For High Blood Pressure 10/29/18 08:15 11/28/18 08:14 10/30/18 06:38 Furosemide (Lasix) 40 mg DAILY IV 10/29/18 05:00 11/28/18 04:59 10/30/18 08:09 Glimepiride (Amaryl) 2 mg ACBREAKFAST ORAL 10/30/18 06:30 11/29/18 06:29 10/30/18 06:20 Heparin Sodium (Porcine) (Heparin 5000 units/ml) 5,000 units EVERY 12 HOURS SUBQ 10/28/18 21:00 11/27/18 20:59 10/30/18 08:12 Metformin HCl (Glucophage) 500 mg TIAC ORAL 10/29/18 11:30 11/28/18 11:29 10/30/18 11:36 Metoprolol Tartrate (Lopressor) 25 mg Q12HR ORAL 10/29/18 09:00 11/28/18 08:59 10/30/18 08:12 Morphine Sulfate (Morphine Sulfate) 2 mg Q4H PRN IVP Severe Pain (Pain Scale 7-10) 10/28/18 16:15 11/04/18 16:14 Pantoprazole (Protonix) 40 mg DAILY IVP 10/29/18 09:00 11/28/18 08:59 10/30/18 08:12 Piperacillin Sod/ Tazobactam Sod 3.375 gm/Sodium Chloride 110 ml @ 27.5 mls/hr EVERY 8 HOURS IVPB 10/28/18 22:00 11/02/18 21:59 10/30/18 13:16 Vancomycin HCl (Vanco rx to dose) 1 ea DAILY PRN MISC Per rx protocol 10/28/18 16:15 11/27/18 16:14 Vancomycin HCl 1 gm/Dextrose 275 ml @ 183.708 mls/hr Q8H IVPB 10/29/18 23:00 11/03/18 22:59 10/30/18 06:15 Jakob Odell M.D. Oct 30, 2018 14:10
--- NOTE | 2018-10-30 14:43 | Diagnostic Imaging Report ---
Indication: Reason For Exam: OSTEOMY Technique: IV administration 25.1 mCi 99 M technetium MDP. Flow, blood pool, and static images were obtained of the bilateral legs and feet Comparison: Reference made to plain radiographs of the bilateral feet dated 10/28/2018 Findings: Flow images demonstrate diffusely increased flow to the right leg and foot as compared to the left. Blood pool images likewise demonstrate relative hyperemia of the right leg and foot as compared to the left. This is fairly diffuse, slightly more striking in the region of the heel and lateral malleolus. Static images demonstrate heterogeneous activity in both feet and ankles. There is somewhat striking increased activity in the region of the right lateral malleolus. No abnormal calcaneal activity is demonstrated. Slightly increased activity in the right mid foot and left toes are probably on the basis of degenerative changes. Impression: Diffusely increased flow and blood pool activity in the right leg and foot, indicative of hyperemia, presumably related to stated clinical history of inflammation/infection Equivocally increased focal static activity in the region of the right lateral malleolus, could indicate osteomyelitis if there is overlying ulceration. However, findings are equivocal. Consider MRI for better characterization if not contraindicated
--- NOTE | 2018-10-30 19:11 | NUR ---
CASE MANAGEMENT: REVIEW SI: CELLULITIS . DIABETIC FOOT ULCER /RIGHT HEEL . T 98.6 HR 69 RR 17 BP 179/109 SAT 96% ROOM AIR H/H 13.5/39.7 NA 135 GLUCOSE 146 AST 43 IS: GLIMEPIRIDE PO QD VANCO IV Q8HR METFORMIN PO TIAC PROTONIX IV QD LASIX IV QD ZOSYN IV Q8HR WOUND CARE QD MED/SURG STATUS DCP: PATIENT REPORTS BEING HOMELESS
--- NOTE | 2018-10-30 19:18 | NUR ---
HAND-OFF: Report given to Jennifer JAMES.
--- NOTE | 2018-10-30 19:22 | NUR ---
NURSE NOTES: Patient awake in bed, alert and oriented x4. Complaint of slight-mild pain on feet. Instructed on the use of call light. Call light and personal belongings within reach. Bed in lowest position, lock, bed alarm on. Will continue to monitor.
--- NOTE | 2018-10-30 20:30 | Consultation ---
DATE OF CONSULTATION: 10/30/2018 ENDOCRINOLOGY CONSULTATION CONSULTING PHYSICIAN: Srinath Guevara M.D. REFERRING PHYSICIAN: Kylie Solorzano M.D. REASON FOR CONSULTATION: Diabetes management. HISTORY OF PRESENT ILLNESS: The patient is a 57-year-old male with history of diabetes, on oral agents, presented to the hospital with weakness and pain in his feet, was found to have diabetic ulcers. The patient has not been taking medication for his diabetes. He does drink alcohol and admitted to the floor for observation and treatment. I was called to manage diabetes. PAST MEDICAL HISTORY: 1. Diabetes. 2. Alcoholism. 3. Hypertension. 4. Liver disease. 5. Gastritis. 6. Hypokalemia. 7. Noncompliance. PAST SURGICAL HISTORY: None listed. FAMILY HISTORY: Noncontributory. ALLERGIES TO MEDICATIONS: None. MEDICATIONS: Reviewed and reconciled. LABORATORY VALUES: WBC 5, hemoglobin 13, hematocrit 39, platelet of 193,000. Sodium 135, potassium 3.7, chloride 98, bicarb 28, BUN 6, and creatinine 0.9. PHYSICAL EXAMINATION: GENERAL: Awake and alert. VITAL SIGNS: Blood pressure is 138/92, pulse of 79, temperature of 98.6, respiratory rate 17. HEENT: Pupils are equal and reactive to light. Sclerae anicteric. NECK: No JVD. HEART: Regular. LUNGS: Clear. ABDOMEN: Positive bowel sounds. Soft. EXTREMITIES: Both feet are dressed. DIAGNOSES: 1. Diabetes, out of control. 2. Diabetic foot ulcer. PLAN: 1. Continue metformin and glimepiride. 2. Continue NovoLog sliding scale before meals and at bedtime. 3. Further adjustment according to blood glucose values. I will follow the patient during hospital stay. Thank you, Dr. Solorzano, for the courtesy of this consultation. Srinath Guevara M.D. DR: Yaneth JOB#: [id number] CC: THUAN
--- NOTE | 2018-10-30 23:00 | Diagnostic Imaging Report ---
APPROVED REPORT CPT Code: 44680 Present Symptoms Comments: BILATERAL LEGS PAIN. BILATERAL: Imaging reveals a patent deep venous system bilaterally. There is no evidence of thrombus within the femoral, popliteal or tibial segments. The greater saphenous veins are also within normal limits. Doppler indicates normal spontaneous flow within these segments.
[2018-10-30] MEDS: Vancomycin 1.5gm Premix IVPB SCH (23:07)
[2018-10-31] VITALS (7 sets, daily range): BP systolic 118–177; BP diastolic 73–106
[2018-10-31] MEDS: Piperacillin/Tazobactam 3.375 GM in NS 110 ML IVPB SCH ×3 (06:21→21:21)
[2018-10-31 06:26] LABS: BASOPHILS % (AUTO) 0.9 % (0.0-2.0); EOSINOPHILS % (AUTO) 2.9 % (0.0-3.0); HEMATOCRIT 42.6 % (42.0-52.0); HEMOGLOBIN 14.4 G/DL (14.2-18.0); LYMPHOCYTES % (AUTO) 21.2 % (20.0-45.0); MEAN CORPUSCULAR VOLUME 93 FL (80-99); MONOCYTES % (AUTO) 14.5 % (1.0-10.0); NEUTROPHILS % (AUTO) 60.6 % (45.0-75.0); PLATELET COUNT 245 K/UL (150-450); RED BLOOD COUNT 4.59 M/UL (4.70-6.10); WHITE BLOOD COUNT 6.1 K/UL (4.8-10.8)
[2018-10-31] MEDS: Glimepiride 1mg tab ORAL SCH (06:29)
[2018-10-31] MEDS: metFORMIN 500mg tab ORAL SCH ×3 (06:29→17:42)
[2018-10-31 06:45] LABS: ALANINE AMINOTRANSFERASE 40 U/L (12-78); ALBUMIN 3.1 G/DL (3.4-5.0); ALBUMIN/GLOBULIN RATIO 0.6 (1.0-2.7); ALKALINE PHOSPHATASE 46 U/L (46-116); ANION GAP 9 mmol/L (5-15); ASPARTATE AMINO TRANSFERASE 36 U/L (15-37); BLOOD UREA NITROGEN 10 mg/dL (7-18); CALCIUM 9.2 MG/DL (8.5-10.1); CARBON DIOXIDE 27 MMOL/L (21-32); CHLORIDE 101 MMOL/L (98-107); CREATININE 1.5 MG/DL (0.55-1.30); POTASSIUM 3.5 MMOL/L (3.5-5.1); SODIUM 137 MMOL/L (136-145)
--- NOTE | 2018-10-31 07:00 | NUR ---
NURSE NOTES: Patient BP 177/104. Rechecked. 2nd BP 172/99. Explained patient about high blood pressure and administered clonidine for SBP>160 per MD order. Rechecked BP. BP reading 144/90. Patient in stable condition. Breathing unlabored and AAO x4. Informed daytime RN.
--- NOTE | 2018-10-31 07:33 | NUR ---
NURSE NOTES: report received from Minsu, pt. awake AOx4. Food is at bedside. Iv's Patent R f/a running Zosin, L F/A outer IV patent, Inner IV not patent. Necrotic big toe on L foot, wound dressing change done by night nurse. . Bilateral heels floating, advised the pt in lao to keep heels floating. Bed in lowest position and locked. Call light is within reach. Will continue plan of care. pt waiting for placement, social service in the case.
--- NOTE | 2018-10-31 08:40 | NUR ---
HAND-OFF: Report given to JACOB Jo. Patient in stable condition.
--- NOTE | 2018-10-31 09:26 | General Progress Note ---
Assessment/Plan Problem List: (1) ETOH abuse ICD Codes: F10.10 - ETOH abuse SNOMED: 08353488 (2) Hyperglycemia ICD Codes: R73.9 - Hyperglycemia, unspecified SNOMED: 62716416 (3) Noncompliance with medication regimen ICD Codes: Z91.14 - Patient's other noncompliance with medication regimen SNOMED: 872561980 (4) Peripheral neuropathy ICD Codes: G62.9 - Polyneuropathy, unspecified SNOMED: 46263048 (5) Diabetic foot ulcer ICD Codes: E11.621 - Type 2 diabetes mellitus with foot ulcer; L97.509 - Non- pressure chronic ulcer of other part of unspecified foot with unspecified severity SNOMED: 684523735, 81059993 Qualifiers: Qualified Codes: E11.621 - Type 2 diabetes mellitus with foot ulcer; L97.402 - Non-pressure chronic ulcer of unspecified heel and midfoot with fat layer exposed Assessment/Plan: continue Metformin and Amaryl continue NISS ac / hs Subjective Allergies: Coded Allergies: No Known Allergies (Unverified , 02/22/14) All Systems: reviewed and negative except above Subjective events noted doing fine appreciative Item Value Date Time Glucose Level 131 MG/DL H 10/31/18 0510 Glucose Level 146 MG/DL H 10/30/18 0515 Objective Last 24 Hour Vital Signs Date Time Temp Pulse Resp B/P (MAP) Pulse Ox O2 Delivery O2 Flow Rate FiO2 10/31/18 06:48 177/106 10/31/18 04:00 98.0 79 20 177/106 (129) 98 10/31/18 00:00 98.2 70 20 149/79 (102) 98 10/30/18 21:14 72 168/94 10/30/18 21:00 Room Air 10/30/18 20:00 98.1 72 18 168/94 (118) 95 10/30/18 16:00 98.6 79 17 138/92 (107) 97 10/30/18 12:00 98.6 69 18 127/78 (94) 97 Intake and Output 10/30/18 10/31/18 19:00 07:00 Intake Total 800 ml Balance 800 ml Other 800 ml Laboratory Tests 10/30/18 21:40: Vancomycin Level Trough 24.1H 10/31/18 05:10: White Blood Count 6.1, Red Blood Count 4.59L, Hemoglobin 14.4, Hematocrit 42.6, Mean Corpuscular Volume 93, Mean Corpuscular Hemoglobin 31.3H, Mean Corpuscular Hemoglobin Concent 33.8, Red Cell Distribution Width 12.0, Platelet Count 245, Mean Platelet Volume 7.2, Neutrophils (%) (Auto) 60.6, Lymphocytes (%) (Auto) 21.2, Monocytes (%) (Auto) 14.5H, Eosinophils (%) (Auto) 2.9, Basophils (%) ( Auto) 0.9, Sodium Level 137, Potassium Level 3.5, Chloride Level 101, Carbon Dioxide Level 27, Anion Gap 9, Blood Urea Nitrogen 10, Creatinine 1.5#H, Estimat Glomerular Filtration Rate 48.4, Glucose Level 131H, Calcium Level 9.2, Total Bilirubin 1.0, Aspartate Amino Transf (AST/SGOT) 36, Alanine Aminotransferase (ALT/SGPT) 40, Alkaline Phosphatase 46, Total Protein 7.9, Albumin 3.1L, Globulin 4.8, Albumin/Globulin Ratio 0.6L Height (Feet): 5 Height (Inches): 2.00 Weight (Pounds): 210 General Appearance: no apparent distress Neck: normal alignment Cardiovascular: normal rate Respiratory/Chest: lungs clear Abdomen: normal bowel sounds Pelvis: normal external exam Objective Current Medications Medications (Trade) Dose Ordered Sig/Ana Maria Route PRN Reason Start Time Stop Time Status Last Admin Dose Admin Acetaminophen (Tylenol) 650 mg Q6H PRN ORAL Mild Pain/Temp > 100.5 10/29/18 09:00 11/28/18 08:59 10/29/18 10:20 Acetaminophen/ Hydrocodone Bitart ([place] 5/325) 1 tab Q4H PRN ORAL Moderate Pain (Pain Scale 4-6) 10/28/18 16:15 11/04/18 16:14 10/29/18 21:32 Clonidine HCl (Catapres Tab) 0.1 mg Q4H PRN ORAL For High Blood Pressure 10/29/18 08:15 11/28/18 08:14 10/31/18 06:48 Furosemide (Lasix) 40 mg DAILY IV 10/29/18 05:00 11/28/18 04:59 10/30/18 08:09 Glimepiride (Amaryl) 2 mg ACBREAKFAST ORAL 10/30/18 06:30 11/29/18 06:29 10/31/18 06:29 Heparin Sodium (Porcine) (Heparin 5000 units/ml) 5,000 units EVERY 12 HOURS SUBQ 10/28/18 21:00 11/27/18 20:59 10/30/18 21:16 Metformin HCl (Glucophage) 500 mg TIAC ORAL 10/29/18 11:30 11/28/18 11:29 10/31/18 06:29 Metoprolol Tartrate (Lopressor) 25 mg Q12HR ORAL 10/29/18 09:00 11/28/18 08:59 10/30/18 21:14 Morphine Sulfate (Morphine Sulfate) 2 mg Q4H PRN IVP Severe Pain (Pain Scale 7-10) 10/28/18 16:15 11/04/18 16:14 Pantoprazole (Protonix) 40 mg DAILY IVP 10/29/18 09:00 11/28/18 08:59 10/30/18 08:12 Piperacillin Sod/ Tazobactam Sod 3.375 gm/Sodium Chloride 110 ml @ 27.5 mls/hr EVERY 8 HOURS IVPB 10/28/18 22:00 11/02/18 21:59 10/31/18 06:21 Vancomycin HCl (Vanco rx to dose) 1 ea DAILY PRN MISC Per rx protocol 10/28/18 16:15 11/27/18 16:14 Vancomycin HCl/ Dextrose 275 ml @ 137.5 mls/ hr Q12H IVPB 10/30/18 23:00 11/04/18 22:59 10/30/18 23:07 Srinath Guevara MD Oct 31, 2018 09:26
[2018-10-31] MEDS: Metoprolol 25mg tab ORAL SCH ×2 (10:15→21:22)
[2018-10-31] MEDS: Pantoprazole Inj IVP SCH (10:20)
[2018-10-31] MEDS: Heparin 5000 units/ml inj SUBQ SCH ×2 (10:21→21:23)
[2018-10-31] MEDS: Vancomycin 1.5gm Premix IVPB SCH ×2 (11:54→23:00)
--- NOTE | 2018-10-31 19:10 | Infectious Diseases Prog Note ---
Assessment/Plan Problems: (1) Diabetic foot ulcer Assessment & Plan: with cellulitis, bone scan didn't show osteomyelitis, continue wide spectrum antibiotics and local wound care and dressings change as per planer tailer . (2) Cellulitis Assessment & Plan: due to the above, continue antibiotics, keep legs elevated (3) Hyperglycemia Assessment & Plan: with poorly controlled DM, recommend tight glycemic control to keep blood glucose between 100-140 (4) Peripheral neuropathy Assessment & Plan: due to DM poorly controlled Subjective Constitutional: Reports: no symptoms HEENT: Reports: no symptoms Respiratory: Reports: no symptoms Breasts: Reports: no symptoms Cardiovascular: Reports: no symptoms Gastrointestinal/Abdominal: Reports: no symptoms Genitourinary: Reports: no symptoms Neurologic: Reports: no symptoms Psychiatric: Reports: no symptoms Skin: Reports: no symptoms Endocrine: Reports: no symptoms Hematologic: Reports: no symptoms Musculoskeletal: Reports: no symptoms Allergies: Coded Allergies: No Known Allergies (Unverified , 02/22/14) Objective Vital Signs Last 24 Hour Vital Signs Date Time Temp Pulse Resp B/P (MAP) Pulse Ox O2 Delivery O2 Flow Rate FiO2 10/31/18 16:00 99.1 71 16 145/75 (98) 99 10/31/18 12:00 98.5 66 17 118/73 (88) 97 10/31/18 10:15 64 130/78 10/31/18 08:30 97.8 64 18 130/78 (95) 98 10/31/18 08:00 97.8 64 18 130/78 (95) 97 10/31/18 06:48 177/106 10/31/18 04:00 98.0 79 20 177/106 (129) 98 10/31/18 00:00 98.2 70 20 149/79 (102) 98 10/30/18 21:14 72 168/94 10/30/18 21:00 Room Air 10/30/18 20:00 98.1 72 18 168/94 (118) 95 Height (Feet): 5 Height (Inches): 2.00 Weight (Pounds): 210 General Appearance: WD/WN, no acute distress HEENT: normocephalic, atraumatic, anicteric, mucous membranes moist, PERRL, pharynx normal Respiratory/Chest: chest wall non-tender, lungs clear, normal breath sounds, no respiratory distress, no accessory muscle use Cardiovascular: normal peripheral pulses, normal rate, regular rhythm, no gallop/murmur, no JVD Abdomen: normal bowel sounds, soft, non tender, no organomegaly, non distended , no mass, no scars Genitourinary: normal external genitalia Extremities: no cyanosis, no clubbing Skin: no rash Neurologic/Psychiatric: overlock sleeve setter II-XII grossly normal, no motor/sensory deficits, abnormal gait, alert, oriented x 3, responsive Lymphatic: no neck adenopathy, no groin adenopathy Musculoskeletal: normal muscle bulk, no effusion Laboratory Tests Test 10/30/18 21:40 10/31/18 05:10 Vancomycin Level Trough 24.1 ug/mL (5.0-12.0) H White Blood Count 6.1 K/UL (4.8-10.8) Red Blood Count 4.59 M/UL (4.70-6.10) L Hemoglobin 14.4 G/DL (14.2-18.0) Hematocrit 42.6 % (42.0-52.0) Mean Corpuscular Volume 93 FL (80-99) Mean Corpuscular Hemoglobin 31.3 PG (27.0-31.0) H Mean Corpuscular Hemoglobin Concent 33.8 G/DL (32.0-36.0) Red Cell Distribution Width 12.0 % (11.6-14.8) Platelet Count 245 K/UL (150-450) Mean Platelet Volume 7.2 FL (6.5-10.1) Neutrophils (%) (Auto) 60.6 % (45.0-75.0) Lymphocytes (%) (Auto) 21.2 % (20.0-45.0) Monocytes (%) (Auto) 14.5 % (1.0-10.0) H Eosinophils (%) (Auto) 2.9 % (0.0-3.0) Basophils (%) (Auto) 0.9 % (0.0-2.0) Sodium Level 137 MMOL/L (136-145) Potassium Level 3.5 MMOL/L (3.5-5.1) Chloride Level 101 MMOL/L (98-107) Carbon Dioxide Level 27 MMOL/L (21-32) Anion Gap 9 mmol/L (5-15) Blood Urea Nitrogen 10 mg/dL (7-18) Creatinine 1.5 MG/DL (0.55-1.30) #H Estimat Glomerular Filtration Rate 48.4 mL/min (>60) Glucose Level 131 MG/DL (74-106) H Calcium Level 9.2 MG/DL (8.5-10.1) Total Bilirubin 1.0 MG/DL (0.2-1.0) Aspartate Amino Transf (AST/SGOT) 36 U/L (15-37) Alanine Aminotransferase (ALT/SGPT) 40 U/L (12-78) Alkaline Phosphatase 46 U/L (46-116) Total Protein 7.9 G/DL (6.4-8.2) Albumin 3.1 G/DL (3.4-5.0) L Globulin 4.8 g/dL Albumin/Globulin Ratio 0.6 (1.0-2.7) L Current Medications Medications (Trade) Dose Ordered Sig/Ana Maria Route PRN Reason Start Time Stop Time Status Last Admin Dose Admin Acetaminophen (Tylenol) 650 mg Q6H PRN ORAL Mild Pain/Temp > 100.5 10/29/18 09:00 11/28/18 08:59 10/29/18 10:20 Acetaminophen/ Hydrocodone Bitart ([place] 5/325) 1 tab Q4H PRN ORAL Moderate Pain (Pain Scale 4-6) 10/28/18 16:15 11/04/18 16:14 10/29/18 21:32 Clonidine HCl (Catapres Tab) 0.1 mg Q4H PRN ORAL For High Blood Pressure 10/29/18 08:15 11/28/18 08:14 10/31/18 06:48 Furosemide (Lasix) 40 mg DAILY IV 10/29/18 05:00 11/28/18 04:59 10/31/18 10:16 Glimepiride (Amaryl) 2 mg ACBREAKFAST ORAL 10/30/18 06:30 11/29/18 06:29 10/31/18 06:29 Heparin Sodium (Porcine) (Heparin 5000 units/ml) 5,000 units EVERY 12 HOURS SUBQ 10/28/18 21:00 11/27/18 20:59 10/31/18 10:21 Metformin HCl (Glucophage) 500 mg TIAC ORAL 10/29/18 11:30 11/28/18 11:29 10/31/18 17:42 Metoprolol Tartrate (Lopressor) 25 mg Q12HR ORAL 10/29/18 09:00 11/28/18 08:59 10/31/18 10:15 Morphine Sulfate (Morphine Sulfate) 2 mg Q4H PRN IVP Severe Pain (Pain Scale 7-10) 10/28/18 16:15 11/04/18 16:14 Pantoprazole (Protonix) 40 mg DAILY IVP 10/29/18 09:00 11/28/18 08:59 10/31/18 10:20 Piperacillin Sod/ Tazobactam Sod 3.375 gm/Sodium Chloride 110 ml @ 27.5 mls/hr EVERY 8 HOURS IVPB 10/28/18 22:00 11/02/18 21:59 10/31/18 10:26 Vancomycin HCl (Vanco rx to dose) 1 ea DAILY PRN MISC Per rx protocol 10/28/18 16:15 11/27/18 16:14 Vancomycin HCl/ Dextrose 275 ml @ 137.5 mls/ hr Q12H IVPB 10/30/18 23:00 11/04/18 22:59 10/31/18 11:54 Jakob Odell M.D. Oct 31, 2018 19:10
--- NOTE | 2018-10-31 19:48 | General Progress Note ---
Assessment/Plan Assessment/Plan: S: I am better O: seems comfortable, no severe pain PHYSICAL EXAMINATION:HEAD AND NECK: Atraumatic, normocephalic. CHEST: Clear to auscultation.HEART: S1, S2. Regular rate and rhythm. ABDOMEN: Soft. No organomegaly.MUSCULOSKELETAL: Positive for diffuse edema and the wounds on both lower extremities. NEUROLOGIC: The patient is awake, alert, oriented x3. Bone scan , dated Nov 09 reviewed ASSESSMENT: 1. Acute cellulitis of the lower extremities (less likely to be possibility of osteomyelitis cannot be excluded). 2. Anemia. 3. Homelessness. 4. Diabetes. 5. GI and DVT prophylaxis. PLAN OF CARE: current antibiotic NO gross evidence of Osteomyelitis Current IV abx Once clear by ID , may DC to PO and Fu as O/p Subjective Allergies: Coded Allergies: No Known Allergies (Unverified , 02/22/14) Objective Last 24 Hour Vital Signs Date Time Temp Pulse Resp B/P (MAP) Pulse Ox O2 Delivery O2 Flow Rate FiO2 10/31/18 16:00 99.1 71 16 145/75 (98) 99 10/31/18 12:00 98.5 66 17 118/73 (88) 97 10/31/18 10:15 64 130/78 10/31/18 09:00 Room Air 10/31/18 08:30 97.8 64 18 130/78 (95) 98 10/31/18 08:00 97.8 64 18 130/78 (95) 97 10/31/18 06:48 177/106 10/31/18 04:00 98.0 79 20 177/106 (129) 98 10/31/18 00:00 98.2 70 20 149/79 (102) 98 10/30/18 21:14 72 168/94 10/30/18 21:00 Room Air 10/30/18 20:00 98.1 72 18 168/94 (118) 95 Intake and Output 10/30/18 10/31/18 18:59 06:59 Intake Total 800 ml Balance 800 ml Other 800 ml Laboratory Tests 10/30/18 21:40: Vancomycin Level Trough 24.1H 10/31/18 05:10: White Blood Count 6.1, Red Blood Count 4.59L, Hemoglobin 14.4, Hematocrit 42.6, Mean Corpuscular Volume 93, Mean Corpuscular Hemoglobin 31.3H, Mean Corpuscular Hemoglobin Concent 33.8, Red Cell Distribution Width 12.0, Platelet Count 245, Mean Platelet Volume 7.2, Neutrophils (%) (Auto) 60.6, Lymphocytes (%) (Auto) 21.2, Monocytes (%) (Auto) 14.5H, Eosinophils (%) (Auto) 2.9, Basophils (%) ( Auto) 0.9, Sodium Level 137, Potassium Level 3.5, Chloride Level 101, Carbon Dioxide Level 27, Anion Gap 9, Blood Urea Nitrogen 10, Creatinine 1.5#H, Estimat Glomerular Filtration Rate 48.4, Glucose Level 131H, Calcium Level 9.2, Total Bilirubin 1.0, Aspartate Amino Transf (AST/SGOT) 36, Alanine Aminotransferase (ALT/SGPT) 40, Alkaline Phosphatase 46, Total Protein 7.9, Albumin 3.1L, Globulin 4.8, Albumin/Globulin Ratio 0.6L Height (Feet): 5 Height (Inches): 2.00 Weight (Pounds): 210 Kylie Solorzano MD Oct 31, 2018 19:48
--- NOTE | 2018-10-31 19:55 | NUR ---
HAND-OFF: Report given to Janelle/ pt on stable condition. Addendum: 10/31/18 at 2024 by Deysi Chandler RN HAND-OFF: Report given to Kuldeep. pt on stable condition, endorsed to hold vancomycin until vanco trough result is back from pharmacy and pharmacy advise to give med.
--- NOTE | 2018-10-31 19:56 | NUR ---
NURSE NOTES: Pt is awake AOx4. R FA 22g patent. L F/A outer IV patent, Necrotic 1st metatarsal- left foot, dressing clean dry and intact, Bilateral heels floating, Bed in lowest position and locked, side rails x2, urinal at bedside. Call light is within reach. Will continue plan of care. pt waiting for placement, social service on the case.
--- NOTE | 2018-10-31 23:01 | NUR ---
NURSE NOTES: [facility] to inform them of the results of vanco trough at high 34.1. Scheduled vanco held at this time
[2018-11-01] VITALS: BP 119/76
[2018-11-01 04:00] VITALS: BP 148/87
[2018-11-01] MEDS: Piperacillin/Tazobactam 3.375 GM in NS 110 ML IVPB SCH (05:14)
[2018-11-01] MEDS: Glimepiride 1mg tab ORAL SCH (05:48)
--- NOTE | 2018-11-01 06:55 | NUR ---
HAND-OFF: Report given to JACOB Hope.
--- NOTE | 2018-11-01 07:30 | General Progress Note ---
Assessment/Plan Problem List: (1) ETOH abuse ICD Codes: F10.10 - ETOH abuse SNOMED: 25038880 (2) Hyperglycemia ICD Codes: R73.9 - Hyperglycemia, unspecified SNOMED: 92898912 (3) Noncompliance with medication regimen ICD Codes: Z91.14 - Patient's other noncompliance with medication regimen SNOMED: 635333445 (4) Peripheral neuropathy ICD Codes: G62.9 - Polyneuropathy, unspecified SNOMED: 81783021 (5) Diabetic foot ulcer ICD Codes: E11.621 - Type 2 diabetes mellitus with foot ulcer; L97.509 - Non- pressure chronic ulcer of other part of unspecified foot with unspecified severity SNOMED: 150037779, 02245748 Qualifiers: Qualified Codes: E11.621 - Type 2 diabetes mellitus with foot ulcer; L97.402 - Non-pressure chronic ulcer of unspecified heel and midfoot with fat layer exposed Assessment/Plan: continue Amaryl 2 mg daily Novolog sliding scale ac / hs moderate scale hypoglycemia protocol Subjective Allergies: Coded Allergies: No Known Allergies (Unverified , 02/22/14) All Systems: reviewed and negative except above Subjective events noted no longer on Metformin Current Medications Medications (Trade) Dose Ordered Sig/Ana Maria Route PRN Reason Start Time Stop Time Status Last Admin Dose Admin Acetaminophen (Tylenol) 650 mg Q6H PRN ORAL Mild Pain/Temp > 100.5 10/29/18 09:00 11/28/18 08:59 10/29/18 10:20 Acetaminophen/ Hydrocodone Bitart ([place] 5/325) 1 tab Q4H PRN ORAL Moderate Pain (Pain Scale 4-6) 10/28/18 16:15 11/04/18 16:14 10/29/18 21:32 Clonidine HCl (Catapres Tab) 0.1 mg Q4H PRN ORAL For High Blood Pressure 10/29/18 08:15 11/28/18 08:14 10/31/18 06:48 Furosemide (Lasix) 40 mg DAILY IV 10/29/18 05:00 11/28/18 04:59 10/31/18 10:16 Glimepiride (Amaryl) 2 mg ACBREAKFAST ORAL 10/30/18 06:30 11/29/18 06:29 11/01/18 05:48 Heparin Sodium (Porcine) (Heparin 5000 units/ml) 5,000 units EVERY 12 HOURS SUBQ 10/28/18 21:00 11/27/18 20:59 10/31/18 21:23 Metoprolol Tartrate (Lopressor) 25 mg Q12HR ORAL 10/29/18 09:00 11/28/18 08:59 10/31/18 21:22 Morphine Sulfate (Morphine Sulfate) 2 mg Q4H PRN IVP Severe Pain (Pain Scale 7-10) 10/28/18 16:15 11/04/18 16:14 Pantoprazole (Protonix) 40 mg DAILY IVP 10/29/18 09:00 11/28/18 08:59 10/31/18 10:20 Piperacillin Sod/ Tazobactam Sod 3.375 gm/Sodium Chloride 110 ml @ 27.5 mls/hr EVERY 8 HOURS IVPB 10/28/18 22:00 11/02/18 21:59 11/01/18 05:14 Vancomycin HCl (Vanco rx to dose) 1 ea DAILY PRN MISC Per rx protocol 10/28/18 16:15 11/27/18 16:14 Objective Last 24 Hour Vital Signs Date Time Temp Pulse Resp B/P (MAP) Pulse Ox O2 Delivery O2 Flow Rate FiO2 11/01/18 04:00 98.4 68 18 148/87 (107) 100 11/01/18 00:00 97.8 67 18 119/76 (90) 98 10/31/18 21:22 76 128/73 10/31/18 21:00 Room Air 10/31/18 20:00 98.1 76 18 128/73 (91) 100 10/31/18 16:00 99.1 71 16 145/75 (98) 99 10/31/18 12:00 98.5 66 17 118/73 (88) 97 10/31/18 10:15 64 130/78 10/31/18 09:00 Room Air 10/31/18 08:30 97.8 64 18 130/78 (95) 98 10/31/18 08:00 97.8 64 18 130/78 (95) 97 Intake and Output 10/31/18 11/01/18 19:00 07:00 Intake Total 1300 ml 82.5 ml Output Total 500 ml 400 ml Balance 800 ml -317.5 ml Intake Oral 1300 ml IV Total 82.5 ml Output Urine Total 500 ml 400 ml # Voids 6 1 Laboratory Tests 10/31/18 21:30: Vancomycin Level Trough 34.1H Height (Feet): 5 Height (Inches): 2.00 Weight (Pounds): 210 General Appearance: no apparent distress Neck: normal alignment Cardiovascular: normal rate Respiratory/Chest: lungs clear Abdomen: normal bowel sounds Pelvis: normal external exam Objective Current Medications Medications (Trade) Dose Ordered Sig/Ana Maria Route PRN Reason Start Time Stop Time Status Last Admin Dose Admin Acetaminophen (Tylenol) 650 mg Q6H PRN ORAL Mild Pain/Temp > 100.5 10/29/18 09:00 11/28/18 08:59 10/29/18 10:20 Acetaminophen/ Hydrocodone Bitart ([place] 5/325) 1 tab Q4H PRN ORAL Moderate Pain (Pain Scale 4-6) 10/28/18 16:15 11/04/18 16:14 10/29/18 21:32 Clonidine HCl (Catapres Tab) 0.1 mg Q4H PRN ORAL For High Blood Pressure 10/29/18 08:15 11/28/18 08:14 10/31/18 06:48 Furosemide (Lasix) 40 mg DAILY IV 10/29/18 05:00 11/28/18 04:59 10/31/18 10:16 Glimepiride (Amaryl) 2 mg ACBREAKFAST ORAL 10/30/18 06:30 11/29/18 06:29 11/01/18 05:48 Heparin Sodium (Porcine) (Heparin 5000 units/ml) 5,000 units EVERY 12 HOURS SUBQ 10/28/18 21:00 11/27/18 20:59 10/31/18 21:23 Metoprolol Tartrate (Lopressor) 25 mg Q12HR ORAL 10/29/18 09:00 11/28/18 08:59 10/31/18 21:22 Morphine Sulfate (Morphine Sulfate) 2 mg Q4H PRN IVP Severe Pain (Pain Scale 7-10) 10/28/18 16:15 11/04/18 16:14 Pantoprazole (Protonix) 40 mg DAILY IVP 10/29/18 09:00 11/28/18 08:59 10/31/18 10:20 Piperacillin Sod/ Tazobactam Sod 3.375 gm/Sodium Chloride 110 ml @ 27.5 mls/hr EVERY 8 HOURS IVPB 10/28/18 22:00 11/02/18 21:59 11/01/18 05:14 Vancomycin HCl (Vanco rx to dose) 1 ea DAILY PRN MISC Per rx protocol 10/28/18 16:15 11/27/18 16:14 Srinath Guevara MD Nov 01, 2018 07:30
[2018-11-01 08:00] VITALS: BP 162/91
[2018-11-01] MEDS: Pantoprazole Inj IVP SCH (08:51)
[2018-11-01] MEDS: Metoprolol 25mg tab ORAL SCH ×2 (08:52→21:18)
[2018-11-01] MEDS: Heparin 5000 units/ml inj SUBQ SCH ×2 (08:54→21:18)
--- NOTE | 2018-11-01 10:15 | NUR ---
NURSE NOTES: checked with Nurse Palliative Care Physician, no US service in the building, only for STAT. Will postpone abdominal US for tomorrow, reinstated regular diet.
[2018-11-01 12:00] VITALS: BP 129/76
--- NOTE | 2018-11-01 12:00 | NUR ---
NURSE NOTES: patient refused Tylenol for T 100.3. Fever subsided, T 98.8F. Addendum: 11/01/18 at 1444 by KASSIDY BROOKE RN Dr[address] Odell notified.
[2018-11-01] MEDS: Meropenem 1 GM in NS 55 ML IVPB SCH ×2 (12:07→22:23)
[2018-11-01] MEDS: NovoLOG Insulin Flexpen SUBQ SCH ×3 (12:16→21:00)
--- NOTE | 2018-11-01 13:05 | Infectious Diseases Prog Note ---
Assessment/Plan Problems: (1) Diabetic foot ulcer Assessment & Plan: with cellulitis, bone scan didn't show osteomyelitis but flared at the right lateral malleolus bone , continue wide spectrum antibiotics and local wound care and dressings change as per political director . (2) Cellulitis Assessment & Plan: due to the above, continue antibiotics, keep legs elevated (3) Hyperglycemia Assessment & Plan: with poorly controlled DM, recommend tight glycemic control to keep blood glucose between 100-140 (4) Peripheral neuropathy Assessment & Plan: due to DM poorly controlled (5) Fever Assessment & Plan: suspect due to the above , will send blood culture x2 and switch zosyn to meropenem Subjective Constitutional: Reports: no symptoms HEENT: Reports: no symptoms Respiratory: Reports: no symptoms Breasts: Reports: no symptoms Cardiovascular: Reports: no symptoms Gastrointestinal/Abdominal: Reports: no symptoms Genitourinary: Reports: no symptoms Neurologic: Reports: no symptoms Psychiatric: Reports: no symptoms Skin: Reports: no symptoms Endocrine: Reports: no symptoms Hematologic: Reports: no symptoms Musculoskeletal: Reports: no symptoms Allergies: Coded Allergies: No Known Allergies (Unverified , 02/22/14) Objective Vital Signs Last 24 Hour Vital Signs Date Time Temp Pulse Resp B/P (MAP) Pulse Ox O2 Delivery O2 Flow Rate FiO2 11/01/18 12:00 98.8 74 17 129/76 (93) 98 11/01/18 09:00 Room Air 11/01/18 09:00 Room Air 11/01/18 08:52 68 148/87 11/01/18 08:00 100.3 76 18 162/91 (114) 96 11/01/18 04:00 98.4 68 18 148/87 (107) 100 11/01/18 00:00 97.8 67 18 119/76 (90) 98 10/31/18 21:22 76 128/73 10/31/18 21:00 Room Air 10/31/18 20:00 98.1 76 18 128/73 (91) 100 10/31/18 16:00 99.1 71 16 145/75 (98) 99 Height (Feet): 5 Height (Inches): 2.00 Weight (Pounds): 210 General Appearance: WD/WN, no acute distress HEENT: normocephalic, atraumatic, anicteric, mucous membranes moist Respiratory/Chest: chest wall non-tender, lungs clear, normal breath sounds, no respiratory distress, no accessory muscle use Cardiovascular: normal peripheral pulses, normal rate, regular rhythm, no gallop/murmur, no JVD Abdomen: normal bowel sounds, soft, non tender, no organomegaly, non distended , no mass, no scars Extremities: no cyanosis, no clubbing Skin: no rash, no lesions, ulcers Neurologic/Psychiatric: alert, responsive Lymphatic: no neck adenopathy, no groin adenopathy Musculoskeletal: normal muscle bulk, no effusion Laboratory Tests Test 10/31/18 21:30 Vancomycin Level Trough 34.1 ug/mL (5.0-12.0) H Current Medications Medications (Trade) Dose Ordered Sig/Ana Maria Route PRN Reason Start Time Stop Time Status Last Admin Dose Admin Acetaminophen (Tylenol) 650 mg Q6H PRN ORAL Mild Pain/Temp > 100.5 10/29/18 09:00 11/28/18 08:59 10/29/18 10:20 Acetaminophen/ Hydrocodone Bitart ([place] 5/325) 1 tab Q4H PRN ORAL Moderate Pain (Pain Scale 4-6) 10/28/18 16:15 11/04/18 16:14 10/29/18 21:32 Clonidine HCl (Catapres Tab) 0.1 mg Q4H PRN ORAL For High Blood Pressure 10/29/18 08:15 11/28/18 08:14 10/31/18 06:48 Dextrose (Dextrose 50%) 25 ml Q30M PRN IV Hypoglycemia 11/01/18 07:30 12/01/18 07:29 Dextrose (Dextrose 50%) 50 ml Q30M PRN IV Hypoglycemia 11/01/18 07:30 12/01/18 07:29 Furosemide (Lasix) 40 mg DAILY IV 10/29/18 05:00 11/28/18 04:59 11/01/18 08:52 Glimepiride (Amaryl) 2 mg ACBREAKFAST ORAL 10/30/18 06:30 11/29/18 06:29 11/01/18 05:48 Heparin Sodium (Porcine) (Heparin 5000 units/ml) 5,000 units EVERY 12 HOURS SUBQ 10/28/18 21:00 11/27/18 20:59 11/01/18 08:54 Insulin Aspart (NovoLOG) BEFORE MEALS AND HS SUBQ 11/01/18 11:30 12/01/18 11:29 11/01/18 12:16 Meropenem 1 gm/ Sodium Chloride 55 ml @ 110 mls/hr Q12H IVPB 11/01/18 11:00 11/06/18 10:59 11/01/18 12:07 Metoprolol Tartrate (Lopressor) 25 mg Q12HR ORAL 10/29/18 09:00 11/28/18 08:59 11/01/18 08:52 Morphine Sulfate (Morphine Sulfate) 2 mg Q4H PRN IVP Severe Pain (Pain Scale 7-10) 10/28/18 16:15 11/04/18 16:14 Pantoprazole (Protonix) 40 mg DAILY IVP 10/29/18 09:00 11/28/18 08:59 11/01/18 08:51 Vancomycin HCl (Vanco rx to dose) 1 ea DAILY PRN MISC Per rx protocol 10/28/18 16:15 11/27/18 16:14 Jakob Odell M.D. Nov 01, 2018 13:05
--- NOTE | 2018-11-01 15:00 | NUR ---
NURSE NOTES: changed dressing of left lower leg and left foot, as per order. Previous dressing was falling off.
[2018-11-01 16:00] VITALS: BP 129/77
--- NOTE | 2018-11-01 19:15 | NUR ---
HAND-OFF: Report given to RN [place].
--- NOTE | 2018-11-01 19:20 | NUR ---
NURSE NOTES: Pt is awake AOx4. R hand 22g patent. Necrotic 1st metatarsal- left foot, dressing clean dry and intact, Bilateral heels floating, Bed in lowest position and locked, side rails x2, urinal at bedside. Call light is within reach. Will continue plan of care. pt waiting for placement, social service on the case.
[2018-11-01 20:00] VITALS: BP 162/86
[2018-11-02] VITALS: BP 154/80
[2018-11-02 04:00] VITALS: BP 166/95
[2018-11-02] MEDS: Glimepiride 1mg tab ORAL SCH (05:44)
[2018-11-02] MEDS: NovoLOG Insulin Flexpen SUBQ SCH ×3 (05:45→17:50)
[2018-11-02 05:53] VITALS: BP 166/95
--- NOTE | 2018-11-02 07:04 | General Progress Note ---
Assessment/Plan Problem List: (1) ETOH abuse ICD Codes: F10.10 - ETOH abuse SNOMED: 41173496 (2) Hyperglycemia ICD Codes: R73.9 - Hyperglycemia, unspecified SNOMED: 67601760 (3) Noncompliance with medication regimen ICD Codes: Z91.14 - Patient's other noncompliance with medication regimen SNOMED: 209883320 (4) Peripheral neuropathy ICD Codes: G62.9 - Polyneuropathy, unspecified SNOMED: 09603304 (5) Diabetic foot ulcer ICD Codes: E11.621 - Type 2 diabetes mellitus with foot ulcer; L97.509 - Non- pressure chronic ulcer of other part of unspecified foot with unspecified severity SNOMED: 313212952, 41055241 Qualifiers: Qualified Codes: E11.621 - Type 2 diabetes mellitus with foot ulcer; L97.402 - Non-pressure chronic ulcer of unspecified heel and midfoot with fat layer exposed Assessment/Plan: reduce Amaryl to 1 mg daily Novolog sliding scale ac / hs moderate scale hypoglycemia protocol Subjective Allergies: Coded Allergies: No Known Allergies (Unverified , 02/22/14) All Systems: reviewed and negative except above Subjective events noted glucose values on lower side Item Value Date Time Bedside Blood Glucose 80 mg/dl 11/02/18 0633 Bedside Blood Glucose 70 mg/dl 11/01/18 2100 Bedside Blood Glucose 99 mg/dl 11/01/18 1630 Bedside Blood Glucose 176 mg/dl H 11/01/18 1216 Objective Last 24 Hour Vital Signs Date Time Temp Pulse Resp B/P (MAP) Pulse Ox O2 Delivery O2 Flow Rate FiO2 11/02/18 05:53 98.6 74 20 166/95 (118) 98 11/02/18 05:50 166/95 11/02/18 04:00 98.6 72 20 166/95 (118) 98 11/02/18 00:00 98.6 81 21 154/80 (104) 98 11/01/18 21:33 Room Air 11/01/18 21:18 83 162/86 11/01/18 20:00 98.5 83 23 162/86 (111) 97 11/01/18 16:00 98.1 77 17 129/77 (94) 99 11/01/18 12:00 98.8 74 17 129/76 (93) 98 11/01/18 09:00 Room Air 11/01/18 09:00 Room Air 11/01/18 08:52 68 148/87 11/01/18 08:00 100.3 76 18 162/91 (114) 96 Intake and Output 11/01/18 11/02/18 19:00 07:00 Intake Total 937.5 ml 55 ml Balance 937.5 ml 55 ml Intake Oral 800 ml IV Total 137.5 ml 55 ml # Voids 5 # Bowel Movements 4 Laboratory Tests 11/02/18 05:15: Random Vancomycin Level [Pending] Height (Feet): 5 Height (Inches): 2.00 Weight (Pounds): 210 General Appearance: no apparent distress Neck: normal alignment Cardiovascular: normal rate Respiratory/Chest: lungs clear Abdomen: normal bowel sounds Objective Current Medications Medications (Trade) Dose Ordered Sig/Ana Maria Route PRN Reason Start Time Stop Time Status Last Admin Dose Admin Acetaminophen (Tylenol) 650 mg Q6H PRN ORAL Mild Pain/Temp > 100.5 10/29/18 09:00 11/28/18 08:59 10/29/18 10:20 Acetaminophen/ Hydrocodone Bitart ([place] 5/325) 1 tab Q4H PRN ORAL Moderate Pain (Pain Scale 4-6) 10/28/18 16:15 11/04/18 16:14 10/29/18 21:32 Clonidine HCl (Catapres Tab) 0.1 mg Q4H PRN ORAL For High Blood Pressure 10/29/18 08:15 11/28/18 08:14 11/02/18 05:50 Dextrose (Dextrose 50%) 25 ml Q30M PRN IV Hypoglycemia 11/01/18 07:30 12/01/18 07:29 Dextrose (Dextrose 50%) 50 ml Q30M PRN IV Hypoglycemia 11/01/18 07:30 12/01/18 07:29 Furosemide (Lasix) 40 mg DAILY IV 10/29/18 05:00 11/28/18 04:59 11/01/18 08:52 Glimepiride (Amaryl) 2 mg ACBREAKFAST ORAL 10/30/18 06:30 11/29/18 06:29 11/02/18 05:44 Heparin Sodium (Porcine) (Heparin 5000 units/ml) 5,000 units EVERY 12 HOURS SUBQ 10/28/18 21:00 9/13/19 20:59 11/01/18 21:18 Insulin Aspart (NovoLOG) BEFORE MEALS AND HS SUBQ 11/01/18 11:30 12/01/18 11:29 11/01/18 12:16 Meropenem 1 gm/ Sodium Chloride 55 ml @ 110 mls/hr Q12H IVPB 11/01/18 11:00 11/06/18 10:59 11/01/18 22:23 Metoprolol Tartrate (Lopressor) 25 mg Q12HR ORAL 10/29/18 09:00 11/28/18 08:59 11/01/18 21:18 Morphine Sulfate (Morphine Sulfate) 2 mg Q4H PRN IVP Severe Pain (Pain Scale 7-10) 10/28/18 16:15 11/04/18 16:14 Pantoprazole (Protonix) 40 mg DAILY IVP 10/29/18 09:00 11/28/18 08:59 11/01/18 08:51 Vancomycin HCl (Vanco rx to dose) 1 ea DAILY PRN MISC Per rx protocol 10/28/18 16:15 11/27/18 16:14 Srinath Guevara MD Nov 02, 2018 07:04
--- NOTE | 2018-11-02 07:37 | NUR ---
HAND-OFF: Report given to JACOB Hope.
[2018-11-02 07:48] VITALS: BP 169/107
[2018-11-02] MEDS: Pantoprazole Inj IVP SCH (08:15)
[2018-11-02] MEDS: Metoprolol 25mg tab ORAL SCH (08:15)
[2018-11-02] MEDS: Heparin 5000 units/ml inj SUBQ SCH (08:17)
[2018-11-02] MEDS ORDERED: NS 275ml ONE (09:55)
--- NOTE | 2018-11-02 11:17 | General Progress Note ---
Assessment/Plan Assessment/Plan: S: I am better O: seems comfortable, no severe pain PHYSICAL EXAMINATION:HEAD AND NECK: Atraumatic, normocephalic. CHEST: Clear to auscultation.HEART: S1, S2. Regular rate and rhythm. ABDOMEN: Soft. No organomegaly.MUSCULOSKELETAL: Positive for diffuse edema and the wounds on both lower extremities. NEUROLOGIC: The patient is awake, alert, oriented x3. Bone scan , dated Nov 09 reviewed ASSESSMENT: 1. Acute cellulitis of the lower extremities (less likely to be possibility of osteomyelitis cannot be excluded). 2. Anemia. 3. Homelessness. 4. Diabetes. 5. GI and DVT prophylaxis. 6. ARF PLAN OF CARE: current antibiotic NO gross evidence of Osteomyelitis Current IV abx Pending US -renal Subjective Allergies: Coded Allergies: No Known Allergies (Unverified , 02/22/14) Objective Last 24 Hour Vital Signs Date Time Temp Pulse Resp B/P (MAP) Pulse Ox O2 Delivery O2 Flow Rate FiO2 11/02/18 08:15 70 169/107 11/02/18 07:48 97.7 70 20 169/107 (127) 98 11/02/18 05:53 98.6 74 20 166/95 (118) 98 11/02/18 05:50 166/95 11/02/18 04:00 98.6 72 20 166/95 (118) 98 11/02/18 00:00 98.6 81 21 154/80 (104) 98 11/01/18 21:33 Room Air 11/01/18 21:18 83 162/86 11/01/18 20:00 98.5 83 23 162/86 (111) 97 11/01/18 16:00 98.1 77 17 129/77 (94) 99 11/01/18 12:00 98.8 74 17 129/76 (93) 98 Intake and Output 11/01/18 11/02/18 19:00 07:00 Intake Total 937.5 ml 55 ml Balance 937.5 ml 55 ml Intake Oral 800 ml IV Total 137.5 ml 55 ml # Voids 5 # Bowel Movements 4 Laboratory Tests 11/02/18 05:15: Random Vancomycin Level 28.5 Height (Feet): 5 Height (Inches): 2.00 Weight (Pounds): 210 Kylie Solorzano MD Nov 02, 2018 11:17
[2018-11-02 11:25] LABS: ANION GAP 12 mmol/L (5-15); BLOOD UREA NITROGEN 22 mg/dL (7-18); CALCIUM 9.4 MG/DL (8.5-10.1); CARBON DIOXIDE 26 MMOL/L (21-32); CHLORIDE 100 MMOL/L (98-107); CREATININE 5.5 MG/DL (0.55-1.30); POTASSIUM 3.1 MMOL/L (3.5-5.1); SODIUM 138 MMOL/L (136-145)
--- NOTE | 2018-11-02 11:32 | Surgery Progress Note ---
Surgery Progress Note Subjective Additional Comments no acute events comfortable no complaints exam stable labs noted Objective Last 24 Hour Vital Signs Date Time Temp Pulse Resp B/P (MAP) Pulse Ox O2 Delivery O2 Flow Rate FiO2 11/02/18 08:15 70 169/107 11/02/18 07:48 97.7 70 20 169/107 (127) 98 11/02/18 05:53 98.6 74 20 166/95 (118) 98 11/02/18 05:50 166/95 11/02/18 04:00 98.6 72 20 166/95 (118) 98 11/02/18 00:00 98.6 81 21 154/80 (104) 98 11/01/18 21:33 Room Air 11/01/18 21:18 83 162/86 11/01/18 20:00 98.5 83 23 162/86 (111) 97 11/01/18 16:00 98.1 77 17 129/77 (94) 99 11/01/18 12:00 98.8 74 17 129/76 (93) 98 I&O Intake and Output 11/01/18 11/02/18 19:00 07:00 Intake Total 937.5 ml 55 ml Balance 937.5 ml 55 ml Intake Oral 800 ml IV Total 137.5 ml 55 ml # Voids 5 # Bowel Movements 4 Laboratory Tests Test 11/02/18 05:15 Sodium Level 138 MMOL/L (136-145) Potassium Level 3.1 MMOL/L (3.5-5.1) L Chloride Level 100 MMOL/L (98-107) Carbon Dioxide Level 26 MMOL/L (21-32) Anion Gap 12 mmol/L (5-15) Blood Urea Nitrogen 22 mg/dL (7-18) H Creatinine 5.5 MG/DL (0.55-1.30) H Estimat Glomerular Filtration Rate 10.8 mL/min (>60) Glucose Level 45 MG/DL (74-106) L Calcium Level 9.4 MG/DL (8.5-10.1) Random Vancomycin Level 28.5 ug/mL Plan Problems: (1) Cellulitis Assessment & Plan: Pt presented on admission with multiple ulcerations both lower extremities and feet. Full thickness ulcer with 90% biofilm,erythematous borders noted to posterior R tibia (L)1.5cm x (W)0.8cm.No odor or exudate noted. No elevation in skin temp or induration noted periwound. Dry eschar plantar R foot (L)1.5cm x (W)1cm.Periwound without erythema or fluctuance. Full thickness ulcer R heel. Base of wound has 90% mixed slough necrosis ,10% maría elena. Wound is fluctuant along borders. (L)5.5cm x (W)7cm.Small amt of brown exudate with mild odor noted. Two full thickness ulcer noted to L tibia that are in close proximity. Full thickness ulcer lateral L tibia. Base of wound with 100% slough with erythematous borders. (L)1.6cm x (W) 1.2cm. No odor or exudate noted. Full thickness ulcer lateral/posterior L tibia .Base of wound has 100% slough with erythematous borders. No odor or exudate noted.(L)1.4cm x (W)1.5cm. Dry eschar L achilles without erythema or fluctuance periwound.(L)3cm x (W) 0.5cm..Blood filled blister note to L heel (L)3.8cm x (W)4.5cm. Periwound fluctuant but blanchable.. Necrotic areas noted to plantar L 1st, and 2nd metatarsals. Web space and plantar aspect of 3rd metatarsal is also necrotic. Pt stated he developed ulcers about 6 months ago but denied being seen by physician. 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 Education provided to pt on diabetic foot care and of risks vs benefits to wearing proper fitting foot wear . Instructed to wear shoes with wider width and good support . Pt also instructed to check feet daily and to maintain proper foot hygiene. Tx.Plan: Cleanse wounds R and L tibia with Saline. Apply Therahoney. Apply Cavilon Skin Barrier periwound. Cover wounds with Optifoam drsg. Change Daily and prn. Cleanse wound R heel with Saline. Apply Therahoney. Apply Cavilon Skin BArrier periwound.Cover with ABD pad. Wrap with Kerlix Daily and prn. Apply Betadine to necrotic areas R achilles,Necrotic toes and R heel . Cover with ABD pad. Change Daily and prn. Elevate legs with pillow. appreciate podiatry input Abx per ID. Bone scan with Impression: Diffusely increased flow and blood pool activity in the right leg and foot, indicative of hyperemia, presumably related to stated clinical history of inflammation/infection Equivocally increased focal static activity in the region of the right lateral malleolus, could indicate osteomyelitis if there is overlying ulceration. However, findings are equivocal. Consider MRI for better characterization if not contraindicated nutritional optimization Owen Bourgeois Nov 02, 2018 11:32
[2018-11-02 12:00] VITALS: BP 129/77
--- NOTE | 2018-11-02 12:14 | Diagnostic Imaging Report ---
Indication: Abdominal pain, abnormal liver function tests and lipase Technique: Corley-scale and duplex images of the upper abdomen were obtained Comparison: 05/27/2014. Reference also made to abdomen pelvis CT 01/24/2015 Findings: Gallbladder is unremarkable, without stones, wall thickening, nor pericholecystic fluid. Sonographic Berger's sign is negative. Common bile duct measures 5 mm in diameter. No intrahepatic biliary ductal dilatation. Liver demonstrates diffusely increased echogenicity, consistent with diffuse hepatocellular disease, most likely fatty change, also previously reported. Portal vein and hepatic veins are patent. Pancreas is incompletely visualized due to overlying bowel gas, visualized portions are unremarkable. Spleen is unremarkable. Left kidney measures 11.7 cm in length. Right kidney measures 12.4 cm length. Both kidneys demonstrate normal echogenicity. There is no hydronephrosis. Right kidney demonstrates an 8 mm cyst. Echogenic foci within the renal sinuses bilaterally are consistent with calculi described on prior CT scan, not visible on prior sonogram. Abdominal aorta is partially obscured by bowel gas, visualized portions are non-aneurysmal . Impression: Negative for gallstones or dilated bile ducts Liver demonstrates diffusely increased echogenicity, consistent with diffuse hepatocellular disease, most likely fatty change, also previously reported. Bilateral nonobstructive nephrolithiasis, also previously reported Incidental finding right renal cyst
[2018-11-02] MEDS: Meropenem 1 GM in NS 55 ML IVPB SCH (12:27)
--- NOTE | 2018-11-02 14:24 | NUR ---
RD ASSESSMENT & RECOMMENDATIONS SEE CARE ACTIVITY FOR COMPLETE ASSESSMENT DAILY ESTIMATED NEEDS: Needs based on Wound, DM 59kg adj 25-30 kcals/kg 8760-7013 total kcals 1.25-1.5 g protein/kg 74-89 g total protein 25-30 mL/kg 3319-4239 total fluid mLs NUTRITION DIAGNOSIS: * Increased pro needs r/t wound healing as evidenced by pt w/ multiple wounds on adm, refer to WC eval. * Altered nutrition related lab values r/t clinical status, DM as evidenced by low K (3.1), elev Creat (5.5), A1C 7.0, serum alcohol on adm 332. (CURRENT DIET: Regular) PO DIET RECOMMENDATIONS: LOW NA/ CCHO LOW DIET/ SOFT EASY CHEW ADDITIONAL RECOMMENDATIONS: 1) Obtain a calibrated bed scale wt/ exchange bed as able 2) Wound care: add KATY BID + Vit C 250mg daily 3) Rec Thiamine/ MVI/ Folate for h/o etoh abuse 4) Soft easy chew texture- pt is edentulous
[2018-11-02 16:00] VITALS: BP 146/86
--- NOTE | 2018-11-02 16:52 | NUR ---
NURSE NOTES: pt for DC, had T 100.3, communicated dr. Odell and Rashad, both still ok for DC. Asked dr Odell to call [facility] to give rx to be delivered here.
[2018-11-02] MEDS: Doxycycline Monohydrate 100mg ORAL SCH ×2 (17:00→17:53)
--- NOTE | 2018-11-02 18:00 | NUR ---
NURSE NOTES: patient is being prepared for discharge, changed dressing and instructed pt on how to care for his wounds. Given large amount of supplies, and instructed how to do dressing by himself. Given 2 botles of antibiotic for pt take, Augmentin and doxycycline, and instructed on dosage, frequency and duration. Instructed regarding diet for diabetes 2. Filled Homeless Patient discharge Planning checklist. Informed Brooke CM pt is being discharged. No community care clinic list found.
--- NOTE | 2018-11-02 19:03 | NUR ---
CASE MANAGEMENT: REVIEW SI: CELLULITIS . DIABETIC FOOT ULCER /RIGHT HEEL . T 100.0 HR 75 RR 20 BP BP 169/107 SAT 98% ROOM AIR K 3.1 BUN 22 CR 5.5 IS: GLIMEPIRIDE PO QD VANCO IV Q8HR METFORMIN PO TIAC PROTONIX IV QD LASIX IV QD ZOSYN IV Q8HR WOUND CARE QD MED/SURG STATUS DCP: PATIENT REPORTS BEING HOMELESS
--- NOTE | 2018-11-02 19:30 | NUR ---
NURSE NOTES: Received a report from JACOB Hope. Pt is in stable condition. AAOX4. Able to make needs known in Telugu. On room air. No c/o pain/discomfort. Bed in lowest position. Will continue to monitor. Will discharge later.
--- NOTE | 2018-11-02 19:59 | Cardiology Report ---
APPROVED REPORT EKG Measurement Heart [id number] Normal sinus rhythm Normal ECG
--- NOTE | 2018-11-02 20:20 | NUR ---
HAND-OFF: Report given to JACOB Sosa, after translating all discharge instructions to pt, as this nurse speaks [place]ian.
[2018-11-02] MEDS ORDERED: DOXYCYCLINE MO100 MG ORAL (20:43)
--- NOTE | 2018-11-02 20:55 | NUR ---
NURSE NOTES: Discharged the pt. Pt is in stable condition. Token given for transport. Belongings with the pt. Pt signed the discharged homeless checklist. No IV access, no bleeding noted. Discharge instructions given to the pt by JACOB Hope. Doxycycline and Augmentin medications given to the pt.
[2018-11-02] MEDS ORDERED: Metoprolol Tartrate 50mg tab ORAL SCH (21:00)
[2018-11-03] MEDS ORDERED: Glimepiride 1mg tab ORAL SCH (06:30)
--- NOTE | 2018-11-03 12:34 | Discharge Summary ---
Discharge Summary Discharge Summary _ DATE OF ADMISSION: 10/28/2018 DATE OF DISCHARGE: 11/02/2018 DISCHARGED BY: Dr Solorzano REASON FOR ADMISSION: 57 years old male with past medical history of diabetes mellitus, anemia, liver disease, secondary to alcohol abuse, gastritis , noncompliance , presented with generalized weakness and pain in his feet. Patient reported being noncompliant with his diabetic medications. Patient reported drinking alcohol. Patient reported swelling in his feet , worse on the right side. Pain in the feet reported as burning, aching , rated 10 out of 10 on a scale 1 -10. Patient reported vomiting; no blood in the vomitus . Patient reported occasional diarrhea , but no melena , no hematochezia. No seizures episodes in the past , no delirium tremens. Patient was previously admitted for hyperosmolar coma. Upon evaluation vital signs were stable. Laboratory work-up revealed no leukocytosis , stable hemoglobin and hematocrit. ESR 77. Stable electrolytes and renal parameters. Glucose 246. AST 94 , ALT 73. Lipase 219 Troponin negative. EKG revealed sinus rhythm, no acute ischemic changes. Albumin 3.6. Lactic acid 1.9. Serum alcohol level 332. Serum salicylate and Tylenol levels negative. Urine toxicology screen negative. X-ray of bilateral foot revealed vascular calcification , but no gas or osteomyelitis. Chest x-ray demonstrated no acute cardiopulmonary pathology. In ED patient started on empiric vancomycin and Zosyn and subsequently admitted for further management. CONSULTANTS: ID specialist Dr. Odell soil chemist Dr. Guevara station attendant Dr. [facility] COURSE: Patient admitted to medical surgical floor. Patient started on empiric antibiotics as per ID specialist recommendation. Initial and repeated blood culture were negative. Wound culture revealed Staph aureus. Venous duplex bilateral lower extremity reveal no evidence of acute DVT. DVT prophylaxis provided. Bone scan did not show osteomyelitis, but flared at the right lateral malleolus bone. ID specialist recommended to continue with antibiotic and local wound care . Wound care provided as per general surgeon recommendation. Legs where kept elevated. [employer] seen and evaluated patient. [employer] recommended medical management of diabetes for optimal wound healing as well as the wound care as recommended by general surgeon. No surgical intervention was necessary at this time [employer] closely followed. Hypoglycemia protocol was in order. Dose of Amaryl was decreased. [id number]. Patient was educated on diabetic diet. Blood sugar was managed with sliding scale of insulin on as needed basis. Abdominal ultrasound revealed no evidence of gallstones or dilated ducts. Liver demonstrated diffusely increased echogenicity, consistent with diffuse hepatocellular disease , most likely fatty change, previously reported. Bilateral nonobstructive nephrolithiasis , also previously reported. Patient was counseled on abstinence from alcohol. AST and ALT down to normal : AST 36, ALT 40 . Patient was counseled on abstinence from alcohol. GI prophylaxis provided Supportive care provided. Pain management addressed. Bowel regimen instituted. Patient clinically stabilized and was ready for discharge. FINAL DIAGNOSES: Diabetic foot ulcer Cellulitis lower extremity Wounds bilateral foot Hyperglycemia Peripheral neuropathy ETOH abuse Homelessness DISCHARGE MEDICATIONS: List of medication provided to patient. DISCHARGE INSTRUCTIONS: Patient was discharged home . Follow up with primary care provider in one week. I have been assigned to dictate discharge summary for this account. I was not involved in the patient's management. Talia Tesfaye NP Nov 03, 2018 12:34
== END 2018-11-02 20:55 | disposition home or self-care (01) | DRG 380 ==
LOC: EDBD 10:23 → EMR 10:50 → 4E 11:14 → EDBEDREQ 12:10 → 4E 14:29
DX: E11.621 Type 2 diabetes mellitus with foot ulcer (principal); L97.419 Non-pressure chronic ulcer of right heel and midfoot with unspecified severity; L97.429 Non-pressure chronic ulcer of left heel and midfoot with unspecified severity; E11.65 Type 2 diabetes mellitus with hyperglycemia; L03.116 Cellulitis of left lower limb; L03.115 Cellulitis of right lower limb; E11.42 Type 2 diabetes mellitus with diabetic polyneuropathy; E11.51 Type 2 diabetes mellitus with diabetic peripheral angiopathy without gangrene; F10.20 Alcohol dependence, uncomplicated; I10 Essential (primary) hypertension; Z91.14 Patient's other noncompliance with medication regimen; Z59.0 Homelessness; D64.9 Anemia, unspecified
CPT/HCPCS: 36415; 71045; 76700; 78315; 80048; 80053; 80061; 80202; 80307; 80329; 81003; 82248; 82550; 82962; 83036; 83605; 83690; 83735; 83880; 84484; 85025; 85610; 85651; 85730; 86140; 87040; 87070; 87081; 87181; 87205; 90471; 90715; 93005; 93970; 96361; 96365; 96366; 96368; 96375; 99285; J1815; J2405

== ENCOUNTER 2019-12-06 13:12 | Emergency (ER) | payer MEDICAID ==
[~2019-12-06] VITALS: Ht 172.7 cm; Wt 81.6 kg
[~2019-12-06 13:12] MED LIST changes: +DOXYCYCLINE MO100 MG ORAL
--- NOTE | 2019-12-06 13:15 | NUR ---
ED Nurse Note: PATIENT WAS BROUGHT IN BY [facility] [address] [facility] [address] PT. IS HERE DUE TO ABD PAIN . PER EMS, PT HAS HX OF CHRONIC ABD PAIN BUT GOT WORST 30 MINS PRIOR TO ER ARRIVAL. PATIENT PRESENTED WITH STRONG SMELL OF ALCOHOL, AAO X2, VSS AT THIS TIME
[2019-12-06 13:27] VITALS: BP 132/92
[2019-12-06] MEDS ORDERED: Ketorolac 30mg Inj IV ONE (13:30)
[2019-12-06 14:18] LABS: APPEARANCE,URINE CLEAR; BILIRUBIN, URINE NEGATIVE (NEGATIVE); COLOR,URINE PALE YELLOW; GLUCOSE, URINE (UA) 2+ (NEGATIVE); KETONES,URINE NEGATIVE (NEGATIVE); LEUKOCYTE ESTERASE ,URINE NEGATIVE (NEGATIVE); NITRITE,URINE NEGATIVE (NEGATIVE); PH,URINE 6.5 (4.5-8.0); PROTEIN,URINE 1+ (NEGATIVE); UROBILINOGEN,URINE NORMAL MG/DL (0.0-1.0)
[2019-12-06 14:22] LABS: HEMOGLOBIN 13.9 G/DL (14.2-18.0); MEAN CORPUSCULAR VOLUME 87 FL (80-99); PLATELET COUNT 94 K/UL (150-450); RED BLOOD COUNT 4.72 M/UL (4.70-6.10); RED CELL DISTRIBUTION WIDTH 11.7 % (11.6-14.8); WHITE BLOOD COUNT 4.6 K/UL (4.8-10.8)
--- NOTE | 2019-12-06 14:28 | Diagnostic Imaging Report ---
Indications: Altered level of consciousness Technique: Spiral acquisitions obtained through the brain. Angled axial and coronal 5 x 5 mm slices were reconstructed. Total dose length product 1098 mGycm. CTDI vol(s) 53 mGy. Dose reduction achieved using automated exposure control Comparison: 10/14/2018 Findings: Again demonstrated is age-related enlargement of the ventricles and extra axial CSF spaces. Again demonstrated is periventricular deep white matter low-attenuation, consistent with chronic microvascular ischemic change. No acute intracranial hemorrhage or edema. No mass effect nor midline shift. Otherwise normal montoya-white differentiation. Visualized orbits are unremarkable. There is ethmoid sinus mucosal disease. The mastoids are clear. The calvarium is intact. Multiple focal areas of scalp soft tissue thickening are unchanged. Findings are unchanged Impression: Chronic and age-related changes. Negative for acute intracranial bleed or mass effect Sinus disease incidentally noted The CT scanner at [facility] is accredited by the [employer] and the scans are performed using protocols designed to limit radiation exposure to as low as reasonably achievable to attain images of sufficient resolution adequate for diagnostic evaluation.
--- NOTE | 2019-12-06 14:28 | Diagnostic Imaging Report ---
Indication: Shortness of breath Technique: One view of the chest Comparison: 10/28/2018 Findings: The lungs and pleural spaces are clear. The heart size is normal. There is no significant interim change Impression: Negative
[2019-12-06 14:45] LABS: ANION GAP 14 mmol/L (5-15); BLOOD UREA NITROGEN 7 mg/dL (7-18); CALCIUM 8.5 MG/DL (8.5-10.1); CARBON DIOXIDE 24 MMOL/L (21-32); CHLORIDE 101 MMOL/L (98-107); CREATININE 1.2 MG/DL (0.55-1.30); POTASSIUM 3.8 MMOL/L (3.5-5.1); SODIUM 139 MMOL/L (136-145)
[2019-12-06 14:50] LABS: ALANINE AMINOTRANSFERASE 47 U/L (12-78); ALBUMIN 4.1 G/DL (3.4-5.0); ALKALINE PHOSPHATASE 59 U/L (46-116); ASPARTATE AMINO TRANSFERASE 67 U/L (15-37); BILIRUBIN,TOTAL 0.7 MG/DL (0.2-1.0)
--- NOTE | 2019-12-06 19:06 | Emergency Room Report ---
History of Present Illness General Chief Complaint: Abdominal Pain Present Illness HPI 58-year-old male with history of alcohol intoxication and is diabetes who was seen [place] [facility] before brought in by paramedics due to alcohol intoxication. Patient appears to be slightly altered however responds to questions. Complains of left upper quadrant abdominal pain with acid reflux and nausea. Denies any diffuse abdominal pain diarrhea. Denies tobacco smoke and drug use. Is neurovascularly intact. Denies any unilateral generalized weakness. Reports that he has not taken medication for diabetes. Allergies: Coded Allergies: No Known Allergies (Unverified , 02/22/14) COVID-19 Screening Contact w/high risk pt: No Experienced COVID-19 symptoms?: No COVID-19 Testing performed PLASTIC INSTALLER: No Patient History Past Medical History: see triage record Past Surgical History: unable to obtain Pertinent Family History: unable to obtain Social History: Reports: alcohol use Reviewed Nursing Documentation: PMH: Agreed; PSxH: Agreed Nursing Documentation-PMH Hx Cardiac Problems: Yes Hx Hypertension: Yes Hx Diabetes: Yes Hx Cancer: No Hx Gastrointestinal Problems: No Hx Neurological Problems: No Review of Systems All Other Systems: negative except mentioned in HPI Physical Exam Vital Signs Date Time Temp Pulse Resp B/P (MAP) Pulse Ox O2 Delivery O2 Flow Rate FiO2 12/06/19 13:00 98.8 118 20 132/92 (105) 99 Room Air Sp02 EP Interpretation: reviewed, normal General Appearance: mild distress Head: normocephalic, atraumatic Eyes: bilateral eye normal inspection, bilateral eye PERRL ENT: hearing grossly normal, normal pharynx, no angioedema, normal voice Neck: full range of motion, supple/symm/no masses Respiratory: chest non-tender, lungs clear, normal breath sounds, speaking full sentences Cardiovascular #1: regular rate, rhythm, no edema Gastrointestinal: normal bowel sounds, non tender, no mass Rectal: deferred Musculoskeletal: back normal Neurologic: alert, motor strength/tone normal, oriented x3, sensory intact, responsive, speech normal Psychiatric: judgement/insight normal, memory normal, mood/affect normal, no suicidal/homicidal ideation Skin: no rash Lymphatic: no adenopathy Medical Decision Making PA Attestation ALL Diagnosis and treatment plan reviewed and discussed with my supervising physician Dr. Reynolds Diagnostic Impression: Primary Impression: Acute alcoholic intoxication Additional Impression: Hyperglycemia ER Course 58-year-old male with history of alcohol intoxication and is diabetes who was seen [place] [facility] before brought in by paramedics due to alcohol intoxication. Patient appears to be slightly altered however responds to questions. Complains of left upper quadrant abdominal pain with acid reflux and nausea. Denies any diffuse abdominal pain diarrhea. Denies tobacco smoke and drug use. Is neurovascularly intact. Denies any unilateral generalized weakness. Reports that he has not taken medication for diabetes. Ddx considered but are not limited to: Alcohol intoxication with altered level of consciousness, alcohol intoxication causing pancreatitis, alcohol abuse, mul ti drug use and alcohol intoxication Vital signs: are WNL, pt. is afebrile H&PE are most consistent with: Hyperglycemia, acute alcoholic intoxication ORDERS: CBC, CMP, UA, tox screen, EtOH, lipase, chest x-ray, head CT no contrast, metformin ER intervention: NS bolus, Zofran, Pepcid, Toradol, metformin DISCHARGE: At this time pt. is stable for d/c to home. Will provide printed patient care instructions, and any necessary prescriptions. Care plan and follow up instructions have been discussed with the patient prior to discharge. Patient advised to follow primary doctor regarding hyperglycemia, avoid taking alcohol, increase oral hydration, worsening symptoms return to the emergency room EKG Diagnostic Results Rate: normal Rhythm: NSR ST Segments: no acute changes Other Impression No acute ST changes Chest X-Ray Diagnostic Results Chest X-Ray Diagnostic Results : Chest X-Ray Ordered: Yes # of Views/Limited/Complete: 1 View Indication: Other EP Interpretation: Yes ENRRIQUE Xray: Interpretation reviewed, by supervising MD, and agrees with findings. Interpretation: no consolidation, no effusion, no pneumothorax Impression: No acute disease Electronically Signed by: Yovani August PA-C CT/MRI/US Diagnostic Results CT/MRI/US Diagnostic Results : Imaging Test Ordered: Head CT no contrast Impression No intracranial bleed all within normal limits Last Vital Signs Date Time Temp Pulse Resp B/P (MAP) Pulse Ox O2 Delivery O2 Flow Rate FiO2 12/06/19 14:44 98.8 12/06/19 13:27 118 20 Room Air 12/06/19 13:27 132/92 99 Disposition: HOME, SELF-CARE Condition: Stable Scripts Metformin Hcl* (METFORMIN HCL*) 500 Mg Tablet 500 MG ORAL TWICE A DAY, #30 TAB Prov: Yovani Roberson 12/06/19 Referrals: NOT CHOSEN IPA/MD,REFERRING (PCP) Patient Instructions: Alcohol Intoxication, [id number], Hyperglycemia, [id number] Additional Instructions: Take medication as directed, follow primary care provider, avoid drinking alcohol, you need to continue taking your diabetes Acacian follow-up with primary care provider, if worsening symptoms return to the emergency room Yovani Roberson Dec 06, 2019 19:06
[2019-12-06] MEDS ORDERED: METFORMIN HCL500 M1 ORAL (19:07)
--- NOTE | 2019-12-06 19:08 | NUR ---
HAND-OFF: Report given to Deisi. Patient is sleeping, VSS at this time, NAD noted
[2019-12-06 19:15] VITALS: BP 128/80
[2019-12-06] MEDS ORDERED: metFORMIN 500mg tab ORAL SCH (19:15)
--- NOTE | 2019-12-06 19:15 | NUR ---
ER DISCHARGE NOTE: Patient is cleared to be discharged per ERMD, pt is aox4, on room air, with stable vital signs. pt was given dc and prescription instructions, pt was able to verbalize understanding, pt id band and iv site removed without complications. pt is able to ambulate with steady gait. pt took all belongings. Pt given food and drink, appropriate clothing, directed towards bus stop
--- NOTE | 2019-12-07 17:44 | Cardiology Report ---
APPROVED REPORT EKG Measurement Heart [id number] TN [id number] <Conclusion> Normal sinus rhythm Normal ECG
== END 2019-12-06 19:15 | disposition home or self-care (01) ==
LOC: EDBD 13:12 → EMR 13:20
DX: F10.129 Alcohol abuse with intoxication, unspecified (principal); E11.65 Type 2 diabetes mellitus with hyperglycemia; I10 Essential (primary) hypertension; K21.9 Gastro-esophageal reflux disease without esophagitis; J32.2 Chronic ethmoidal sinusitis; R06.02 Shortness of breath
CPT/HCPCS: 36415; 70450; 71045; 80053; 80307; 81003; 83690; 84484; 85007; 85025; 93005; 96361; 96374; 96375; G0480; J1885; J2405; J7030; S0028; Z7502; 99284